=== PATIENT | male | born 1955 | race Caucasian/White ===

== ENCOUNTER 2023-08-13 11:09 | Emergency (ER) | payer OTHER, MEDICARE ==
--- NOTE | 2023-08-13 12:02 | ED ---
Recheck HPI - General Source: patient, RN notes reviewed Mode of arrival: ambulatory Limitations: no limitations - History of Present Illness MD Complaint: abnormal lab <Marie Silva - Last Filed: 08/13/23 17:04> <Jesus To - Last Filed: 08/13/23 22:08> - General Chief Complaint: Recheck/Abnormal Lab/Rx Stated Complaint: Low platelet count Time Seen by Provider: 08/13/23 11:27 - History of Present Illness Initial Comments: This is a 68-year-old male who presents to the emergency department for low platelet counts. Patient has a history of acute myeloid leukemia. Currently follows with Dr. Gutierrez. He had outpatient lab work done yesterday, demonstrating platelets of 5000. States that he typically receives platelet transfusions, however the facility he had his blood work done at yesterday was unable to do that. He was subsequently advised to come to the emergency department here for a platelet transfusion. He notes that he receives Benadryl and Tylenol prior to infusions due to a hx of reactions and also has them infused over 1 hour instead of 30 minutes to prevent any cardiac issues. (Marie Silva) - Related Data Home Medications Medication Instructions Recorded Confirmed Acyclovir [Zovirax] 400 mg PO BID 08/13/23 08/13/23 Cholecalciferol [Vitamin D3 (25 50 mcg PO DAILY 08/13/23 08/13/23 Mcg = 1000 Iu)] Cyanocobalamin (Vitamin B-12) 1,000 mcg PO DAILY 08/13/23 08/13/23 [Vitamin B-12] Furosemide [Lasix] 40 mg PO DAILY PRN 08/13/23 08/13/23 Levofloxacin [Levaquin] 500 mg PO DAILY 08/13/23 08/13/23 Levothyroxine Sodium [Synthroid] 50 mcg PO MOTUWETHFRSA 08/13/23 08/13/23 Levothyroxine Sodium [Synthroid] 100 mcg PO SENIOR 08/13/23 08/13/23 Posaconazole [Noxafil] 300 mg PO HS 08/13/23 08/13/23 Rosuvastatin Calcium 5 mg PO HS 08/13/23 08/13/23 Sennosides [Senokot] 8.6 mg PO BID PRN 08/13/23 08/13/23 Ubidecarenone [Coenzyme Q10] 200 mg PO DAILY 08/13/23 08/13/23 Venetoclax [Venclexta] 100 mg PO DIRECTED 08/13/23 08/13/23 Allergies Allergy/AdvReac Type Severity Reaction Status Date / Time prednisone Allergy Hallucinati Verified 08/13/23 12:46 ons adhesive tape AdvReac Swelling Verified 08/13/23 12:46 Review of Systems ROS Other: All systems not noted in ROS Statement are negative. <Marie Silva - Last Filed: 08/13/23 17:04> ROS Other: All systems not noted in ROS Statement are negative. <Jesus To - Last Filed: 08/13/23 22:08> ROS Statement: Those systems with pertinent positive or pertinent negative responses have been documented in the HPI. Past Medical History Past Medical History: No Reported History Additional Past Medical History / Comment(s): Leukemia History of Any Multi-Drug Resistant Organisms: None Reported Past Surgical History: Appendectomy, Orthopedic Surgery Additional Past Surgical History / Comment(s): Right hip surgery with ORIF, back surgery, right femur fracture Past Anesthesia/Blood Transfusion Reactions: No Reported Reaction Past Psychological History: No Psychological Hx Reported Smoking Status: Never smoker Past Alcohol Use History: None Reported Past Drug Use History: None Reported - Past Family History Father Family Medical History: Diabetes Mellitus Sister(s) Family Medical History: Diabetes Mellitus <Marie Silva - Last Filed: 08/13/23 17:04> General Exam Limitations: no limitations General appearance: alert, in no apparent distress Head exam: Present: atraumatic, normocephalic, normal inspection Respiratory exam: Present: normal lung sounds bilaterally. Absent: respiratory distress, wheezes, rales, rhonchi, stridor Cardiovascular Exam: Present: regular rate, normal rhythm, normal heart sounds. Absent: systolic murmur, diastolic murmur, rubs, gallop, clicks Neurological exam: Present: alert, oriented X3, CN II-XII intact Psychiatric exam: Present: normal affect, normal mood Skin exam: Present: warm, dry, intact, normal color. Absent: rash <Marie Silva - Last Filed: 08/13/23 17:04> Course Vital Signs 08/13/23 08/13/23 08/13/23 11:13 16:45 19:37 Temperature 97.9 F 97.1 F L Pulse Rate 63 65 62 Respiratory 20 12 16 Rate Blood Pressure 184/70 173/66 191/82 O2 Sat by Pulse 99 97 95 Oximetry 08/13/23 08/13/23 08/13/23 19:45 20:00 20:15 Temperature 97.1 F L 97.1 F L 97.1 F L Pulse Rate 59 L 61 57 L Respiratory 21 21 21 Rate Blood Pressure 191/82 186/79 183/81 O2 Sat by Pulse 92 L 94 L 93 L Oximetry 08/13/23 21:15 Temperature 97.1 F L Pulse Rate 64 Respiratory 20 Rate Blood Pressure 176/82 O2 Sat by Pulse Oximetry Medical Decision Making - Lab Data Result diagrams: 08/13/23 12:37 08/13/23 12:37 <Marie Silva - Last Filed: 08/13/23 17:04> - Lab Data Result diagrams: 08/13/23 12:37 08/13/23 12:37 <Jesus To - Last Filed: 08/13/23 22:08> - Medical Decision Making This is a 68 year old male who presents to the emergency department for a platelet transfusion. Was pt. sent in by a medical professional or institution? @ -No Did you speak to anyone other than the patient for history? @ -No Did you review nursing and triage notes? @ -Yes, and I agree, it is accurate with regards to the patient's symptoms. Were old charts reviewed? @ -No Differential Diagnosis? @ -Not applicable EKG interpreted by me (3pts min.)? @ -Not obtained X-rays interpreted by me (1pt min.)? @ -Not obtained CT interpreted by me (1pt min.)? @ -Not obtained U/S interpreted by me (1pt. min.)? @ -Not obtained What testing was considered but not performed? (CT, X-rays, U/S, labs)? Why? @ -None What meds were considered but not given? Why? @ -None Did you discuss the management of the patient with other professionals? @ -Yes, Dr. Gutierrez, hem/onc, who advised a transfusion with 1 unit of irradiated platelets. Did you reconcile home meds? @ -No Was smoking cessation discussed for >3mins.? @ -No Was critical care preformed (if so, how long)? @ -No Were there social determinants of health that impacted care today? How? (Homelessness, low income, unemployed, alcoholism, drug addiction, transportation, low edu. Level, literacy, decrease access to med. care, [facility], rehab)? @ -No Was there de-escalation of care discussed even if they declined? (Discuss DNR or withdrawal of care, Hospice)? @ -No What co-morbidities impacted this encounter? (DM, HTN, Smoking, COPD, CAD, Cancer, CVA, Hep., AIDS, mental health diagnosis, sleep apnea, morbid obesity)? @ -AML Was patient admitted / discharged? @ -Lab work demonstrates leukopenia with a white blood cell count of 1.2 and neutrophils of 0.10. Platelets are 4. Case discussed with Dr. Gutierrez, heme/onc. He advised transfusing the patient with 1 unit of irradiated platelets and he can be discharged home afterwards. Type and screen was ordered and blood bank advised that they do not have platelets available for transfusion in house, and they will need to be delivered from [place]. The blood bank proceeded with the ordering process and patient was made aware. Patient advised that he needs Tylenol and Benadryl to be given just prior to the infusion to prevent reactions and also requests they be transfused over an hour instead of 30 minutes to prevent any cardiac issues. Case signed out to Jeremy To PA-C, at shift completion pending platelet transfusion. Undiagnosed new problem with uncertain prognosis? @ -None Drug Therapy requiring intensive monitoring for toxicity (Heparin, Nitro, Insulin, Cardizem)? @ -None Were any procedures done? @ -None (Marie Silva) 68-year-old male with a past medical history significant for AML with lab work done yesterday showing platelets of 5000 typically receiving platelet transfusions secondary to his history advised to present today for platelet transfusion. Patient at this time has no current infectious symptoms. He is currently on chemotherapy. He finished 1 round this past Thursday and will be going to [facility] for more chemotherapy next week. Case was discussed with Dr. Gutierrez of heme-onc who advised transfusing 1 unit of irradiated platelets and discharged home. Patient was provided 1 unit of irradiated platelets here with no adverse events. Patient discharged home in stable condition. (Jesus To) - Lab Data Lab Results 08/13/23 08/13/23 08/13/23 Range/Units 12:37 12:37 12:37 WBC 1.2 L* (3.8-10.6) k/uL RBC 3.18 L (4.30-5.90) m/uL Hgb 9.4 L (13.0-17.5) gm/dL Hct 28.4 L (39.0-53.0) % MCV 89.2 (80.0-100.0) fL MCH 29.7 (25.0-35.0) pg MCHC 33.2 (31.0-37.0) g/dL RDW 14.5 (11.5-15.5) % Plt Count 4 L* (150-450) k/uL MPV 8.7 Neutrophils % (Manual) 13 % Band Neuts % (Manual) 1 % Lymphocytes % (Manual) 61 % Monocytes % (Manual) 25 % Neutrophils # (Manual) 0.10 L* (1.3-7.7) k/uL Lymphocytes # (Manual) 0.73 L (1.0-4.8) k/uL Monocytes # (Manual) 0.30 (0-1.0) k/uL Nucleated RBCs 0 (0-0) /100 WBC Manual Slide Review Performed PT 11.9 (10.0-12.5) sec INR 1.1 (<1.2) APTT 26.6 (22.0-30.0) sec Sodium 136 L (137-145) mmol/L Potassium 4.2 (3.5-5.1) mmol/L Chloride 110 H (98-107) mmol/L Carbon Dioxide 24 (22-30) mmol/L Anion Gap 2 mmol/L BUN 15 (9-20) mg/dL Creatinine 0.49 L (0.66-1.25) mg/dL Est GFR (CKD-EPI)AfAm >90 (>60 ml/min/1.73 sqM) Est GFR (CKD-EPI)NonAf >90 (>60 ml/min/1.73 sqM) Glucose 111 H (74-99) mg/dL Calcium 8.4 (8.4-10.2) mg/dL Total Bilirubin 1.2 (0.2-1.3) mg/dL AST 22 (17-59) U/L ALT 55 H (4-49) U/L Alkaline Phosphatase 59 (38-126) U/L Total Protein 5.7 L (6.3-8.2) g/dL Albumin 3.2 L (3.5-5.0) g/dL Blood Type Blood Type Confirm Blood Type Recheck Bld Type Recheck Status Antibody Screen Transfuse Platelets Spec Expiration Date 08/13/23 08/13/23 Range/Units 14:30 14:54 WBC (3.8-10.6) k/uL RBC (4.30-5.90) m/uL Hgb (13.0-17.5) gm/dL Hct (39.0-53.0) % MCV (80.0-100.0) fL MCH (25.0-35.0) pg MCHC (31.0-37.0) g/dL RDW (11.5-15.5) % Plt Count (150-450) k/uL MPV Neutrophils % (Manual) % Band Neuts % (Manual) % Lymphocytes % (Manual) % Monocytes % (Manual) % Neutrophils # (Manual) (1.3-7.7) k/uL Lymphocytes # (Manual) (1.0-4.8) k/uL Monocytes # (Manual) (0-1.0) k/uL Nucleated RBCs (0-0) /100 WBC Manual Slide Review PT (10.0-12.5) sec INR (<1.2) APTT (22.0-30.0) sec Sodium (137-145) mmol/L Potassium (3.5-5.1) mmol/L Chloride (98-107) mmol/L Carbon Dioxide (22-30) mmol/L Anion Gap mmol/L BUN (9-20) mg/dL Creatinine (0.66-1.25) mg/dL Est GFR (CKD-EPI)AfAm (>60 ml/min/1.73 sqM) Est GFR (CKD-EPI)NonAf (>60 ml/min/1.73 sqM) Glucose (74-99) mg/dL Calcium (8.4-10.2) mg/dL Total Bilirubin (0.2-1.3) mg/dL AST (17-59) U/L ALT (4-49) U/L Alkaline Phosphatase (38-126) U/L Total Protein (6.3-8.2) g/dL Albumin (3.5-5.0) g/dL Blood Type A Positive Blood Type Confirm A Positive Blood Type Recheck No Previous Record Bld Type Recheck Status CABO Indicated Antibody Screen NEGATIVE Transfuse Platelets 08/13/23 Spec Expiration Date 08/16/20232329 Disposition <Marie Silva - Last Filed: 08/13/23 17:04> Is patient prescribed a controlled substance at d/c from ED?: No Time of Disposition: 22:08 <Jesus To - Last Filed: 08/13/23 22:08> Clinical Impression: Thrombocytopenia, AML (acute myeloid leukemia) Disposition: HOME SELF-CARE Condition: Good Additional Instructions: Please return to the Emergency Department if symptoms worsen or any other concerns. Please follow-up with your oncologist. Referrals: None,Stated [Primary Care Provider] - 1-2 days
[2023-08-13 12:56] LABS: HCT 28.4 % (39.0-53.0); HGB 9.4 gm/dL (13.0-17.5); MCH 29.7 pg (25.0-35.0); MCHC 33.2 g/dL (31.0-37.0); MCV 89.2 fL (80.0-100.0); Mean Platelet Volume 8.7; RBC 3.18 m/uL (4.30-5.90); RDW 14.5 % (11.5-15.5)
[2023-08-13 13:05] LABS: INR 1.1 (<1.2); Partial Thromboplastin Time 26.6 sec (22.0-30.0); Prothrombin Time 11.9 sec (10.0-12.5)
[2023-08-13 13:08] LABS: WBC 1.2 k/uL (3.8-10.6)
[2023-08-13 13:17] LABS: Platelet Count 4 k/uL (150-450)
[2023-08-13 13:26] LABS: Neutrophils % (M) 13 %
[2023-08-13 13:27] LABS: Band Neutrophils % 1 %; Lymphocytes # (M) 0.73 k/uL (1.0-4.8)
[2023-08-13 13:29] LABS: ALT 55 U/L (4-49); AST 22 U/L (17-59); African American GFR (CKD) >90 (>60 ml/min/1.73 sqM); Albumin 3.2 g/dL (3.5-5.0); Alkaline Phosphatase 59 U/L (38-126); Anion Gap 2 mmol/L; Blood Urea Nitrogen 15 mg/dL (9-20); Calcium 8.4 mg/dL (8.4-10.2); Carbon Dioxide 24 mmol/L (22-30); Chloride 110 mmol/L (98-107); Glucose 111 mg/dL (74-99); Non-African American GFR(CKD) >90 (>60 ml/min/1.73 sqM); Nucleated Red Blood Cells 0 /100 WBC (0-0); Potassium 4.2 mmol/L (3.5-5.1); Sodium 136 mmol/L (137-145); Total Bilirubin 1.2 mg/dL (0.2-1.3); Total Cells Counted 100; Total Protein 5.7 g/dL (6.3-8.2)
[2023-08-13] MEDS: diphenhydrAMINE 50 MG/ML 1 ML VIAL IVP STA (19:11)
[2023-08-13] MEDS: ACETAMINOPHEN TAB 325 MG TAB PO STA (19:11)
[2023-08-13 19:54] VITALS: TEMP 97.1
[2023-08-13 22:56] VITALS: BP 173/74; PULSE 50; RESP 12
== END 2023-08-13 22:52 | disposition home or self-care (01) ==
LOC: EC 11:09
DX: D69.6 Thrombocytopenia, unspecified (principal); C92.00 Acute myeloblastic leukemia, not having achieved remission; Z88.8 Allergy status to other drugs, medicaments and biological substances
CPT/HCPCS: 99283; 96374; 36415; 86900; 86901; 80053; 85025; 85610; 85730; 86850; 36430; P9073; J1200

== ENCOUNTER 2023-08-28 15:41 | Observation (INO) | payer MEDICARE ==
[2023-08-28 16:25] VITALS: RESP 18
[2023-08-28 16:26] LABS: HCT 23.9 % (39.0-53.0); HGB 8.1 gm/dL (13.0-17.5); MCH 29.9 pg (25.0-35.0); MCHC 33.8 g/dL (31.0-37.0); MCV 88.4 fL (80.0-100.0); Mean Platelet Volume 8.7; RBC 2.71 m/uL (4.30-5.90); RDW 13.8 % (11.5-15.5)
[2023-08-28 16:41] LABS: WBC 0.7 k/uL (3.8-10.6)
[2023-08-28 17:00] LABS: ALT 32 U/L (4-49); AST 22 U/L (17-59); African American GFR (CKD) >90 (>60 ml/min/1.73 sqM); Albumin 3.2 g/dL (3.5-5.0); Alkaline Phosphatase 60 U/L (38-126); Anion Gap 6 mmol/L; Blood Urea Nitrogen 16 mg/dL (9-20); Calcium 8.3 mg/dL (8.4-10.2); Carbon Dioxide 25 mmol/L (22-30); Chloride 108 mmol/L (98-107); Glucose 119 mg/dL (74-99); Non-African American GFR(CKD) >90 (>60 ml/min/1.73 sqM); Platelet Count 5 k/uL (150-450); Potassium 4.1 mmol/L (3.5-5.1); Sodium 139 mmol/L (137-145); Total Bilirubin 1.8 mg/dL (0.2-1.3); Total Protein 5.9 g/dL (6.3-8.2)
[2023-08-28] MEDS: ACETAMINOPHEN TAB 325 MG TAB PO STA (20:05)
[2023-08-28] MEDS: diphenhydrAMINE 50 MG CAP PO STA (20:05)
[2023-08-28] MEDS: FUROSEMIDE 10 MG/ML 2 ML VIAL IV STA (22:17)
[2023-08-28] MEDS ORDERED: NALOXONE 0.4 MG/ML 1 ML VIAL IV PRN (22:35)
--- NOTE | 2023-08-28 23:13 | ED ---
Recheck HPI - General Chief Complaint: Recheck/Abnormal Lab/Rx Stated Complaint: Blood Transfusion Source: patient Mode of arrival: ambulatory Limitations: no limitations - History of Present Illness Initial Comments: This patient is a 68-year-old man with history of leukemia who presents with complaint that he has low platelet count. The patient states that he has been following Dr. Ventura, who had wanted him to have platelet transfusion. The patient states that there was not room in the outpatient center and that they did not want him going all weekend without receiving transfusion. He does arrive with a prescription to have transfusion. The patient denies symptoms of infection, no fever, chills, cough, chest pain, dyspnea, dysuria, vomiting or diarrhea. He has not had any active bleeding or bruising MD Complaint: abnormal lab -: days(s) Returns Today for: Called Because of Abnormal Lab/Test Symptoms Since Prior Visit: no new symptoms Associated Symptoms: none - Related Data Home Medications Medication Instructions Recorded Confirmed Acyclovir [Zovirax] 400 mg PO BID 08/13/23 08/25/23 Cholecalciferol [Vitamin D3 (25 50 mcg PO DAILY 08/13/23 08/25/23 Mcg = 1000 Iu)] Cyanocobalamin (Vitamin B-12) 1,000 mcg PO DAILY 08/13/23 08/25/23 [Vitamin B-12] Furosemide [Lasix] 40 mg PO DAILY PRN 08/13/23 08/25/23 Levofloxacin [Levaquin] 500 mg PO DAILY 08/13/23 08/25/23 Levothyroxine Sodium [Synthroid] 50 mcg PO MOTUWETHFRSA 08/13/23 08/25/23 Levothyroxine Sodium [Synthroid] 100 mcg PO SENIOR 08/13/23 08/25/23 Posaconazole [Noxafil] 300 mg PO HS 08/13/23 08/25/23 Rosuvastatin Calcium 5 mg PO HS 08/13/23 08/25/23 Sennosides [Senokot] 8.6 mg PO BID PRN 08/13/23 08/25/23 Ubidecarenone [Coenzyme Q10] 200 mg PO DAILY 08/13/23 08/25/23 Venetoclax [Venclexta] 100 mg PO DIRECTED 08/13/23 08/25/23 Allergies Allergy/AdvReac Type Severity Reaction Status Date / Time prednisone Allergy Hallucinati Verified 08/28/23 15:48 ons adhesive tape AdvReac Swelling Verified 08/28/23 15:48 Review of Systems ROS Statement: Those systems with pertinent positive or pertinent negative responses have been documented in the HPI. ROS Other: All systems not noted in ROS Statement are negative. Constitutional: Denies: fever, chills, weakness ENT: Denies: throat pain, congestion Respiratory: Denies: cough, dyspnea Cardiovascular: Reports: edema. Denies: chest pain, palpitations, syncope Gastrointestinal: Denies: abdominal pain, vomiting, diarrhea Musculoskeletal: Denies: back pain Skin: Denies: rash Neurological: Denies: headache Hematological/Lymphatic: Denies: easy bleeding, easy bruising Past Medical History Past Medical History: No Reported History Additional Past Medical History / Comment(s): Leukemia History of Any Multi-Drug Resistant Organisms: None Reported Past Surgical History: Appendectomy, Orthopedic Surgery Additional Past Surgical History / Comment(s): Right hip surgery with ORIF, back surgery, right femur fracture Past Anesthesia/Blood Transfusion Reactions: No Reported Reaction Past Psychological History: No Psychological Hx Reported Smoking Status: Never smoker - Past Family History Father Family Medical History: Diabetes Mellitus Sister(s) Family Medical History: Diabetes Mellitus General Exam Limitations: no limitations General appearance: alert, in no apparent distress Head exam: Present: atraumatic, normocephalic Eye exam: Present: normal appearance. Absent: scleral icterus, conjunctival injection ENT exam: Present: normal oropharynx Neck exam: Present: normal inspection Respiratory exam: Present: normal lung sounds bilaterally. Absent: respiratory distress, wheezes, rales, rhonchi, stridor Cardiovascular Exam: Present: regular rate, normal rhythm, normal heart sounds. Absent: systolic murmur, diastolic murmur, rubs, gallop GI/Abdominal exam: Present: soft. Absent: distended, tenderness, guarding, rebound, rigid, mass Extremities exam: Present: normal inspection, normal capillary refill. Absent: pedal edema, calf tenderness Neurological exam: Present: alert Skin exam: Present: warm, dry, intact, pallor. Absent: rash Course Vital Signs 08/28/23 08/28/23 08/28/23 15:46 20:12 20:22 Temperature 98 F 97.6 F Pulse Rate 64 62 57 L Respiratory 18 18 18 Rate Blood Pressure 170/48 171/65 170/72 O2 Sat by Pulse 96 98 98 Oximetry 08/28/23 08/28/23 20:42 21:50 Temperature 97.7 F 97.8 F Pulse Rate 58 L 58 L Respiratory 18 18 Rate Blood Pressure 179/79 178/77 O2 Sat by Pulse 99 98 Oximetry Medical Decision Making - Medical Decision Making Patient is 68-year-old man with acute leukemia and thrombocytopenia. He was sent here to have transfusion. I was informed by blood bank that receiving the second unit of platelets may require some delay as blood bank only has 1 unit. Therefore patient will be admitted to have the second unit transfused. Stable at time of admission. - Lab Data Result diagrams: 08/28/23 16:12 08/28/23 16:12 Lab Results 08/28/23 08/28/23 08/28/23 Range/Units 16:12 16:12 16:12 WBC 0.7 L* (3.8-10.6) k/uL RBC 2.71 L (4.30-5.90) m/uL Hgb 8.1 L (13.0-17.5) gm/dL Hct 23.9 L (39.0-53.0) % MCV 88.4 (80.0-100.0) fL MCH 29.9 (25.0-35.0) pg MCHC 33.8 (31.0-37.0) g/dL RDW 13.8 (11.5-15.5) % Plt Count 5 L* (150-450) k/uL MPV 8.7 Neutrophils # [employer]IST Differential Comment P Manual Slide Review Perf Sodium 139 (137-145) mmol/L Potassium 4.1 (3.5-5.1) mmol/L Chloride 108 H (98-107) mmol/L Carbon Dioxide 25 (22-30) mmol/L Anion Gap 6 mmol/L BUN 16 (9-20) mg/dL Creatinine 0.60 L (0.66-1.25) mg/dL Est GFR (CKD-EPI)AfAm >90 (>60 ml/min/1.73 sqM) Est GFR (CKD-EPI)NonAf >90 (>60 ml/min/1.73 sqM) Glucose 119 H (74-99) mg/dL Calcium 8.3 L (8.4-10.2) mg/dL Total Bilirubin 1.8 H (0.2-1.3) mg/dL AST 22 (17-59) U/L ALT 32 (4-49) U/L Alkaline Phosphatase 60 (38-126) U/L Total Protein 5.9 L (6.3-8.2) g/dL Albumin 3.2 L (3.5-5.0) g/dL Blood Type A Positive Blood Type Recheck A Pos Bld Type Recheck Status No Antibody Screen NEGATIVE Transfuse Platelets Spec Expiration Date 08/31/2023 - 231108/28/23 Range/Units 16:39 WBC (3.8-10.6) k/uL RBC (4.30-5.90) m/uL Hgb (13.0-17.5) gm/dL Hct (39.0-53.0) % MCV (80.0-100.0) fL MCH (25.0-35.0) pg MCHC (31.0-37.0) g/dL RDW (11.5-15.5) % Plt Count (150-450) k/uL MPV Neutrophils # Differential Comment Manual Slide Review Sodium (137-145) mmol/L Potassium (3.5-5.1) mmol/L Chloride (98-107) mmol/L Carbon Dioxide (22-30) mmol/L Anion Gap mmol/L BUN (9-20) mg/dL Creatinine (0.66-1.25) mg/dL Est GFR (CKD-EPI)AfAm (>60 ml/min/1.73 sqM) Est GFR (CKD-EPI)NonAf (>60 ml/min/1.73 sqM) Glucose (74-99) mg/dL Calcium (8.4-10.2) mg/dL Total Bilirubin (0.2-1.3) mg/dL AST (17-59) U/L ALT (4-49) U/L Alkaline Phosphatase (38-126) U/L Total Protein (6.3-8.2) g/dL Albumin (3.5-5.0) g/dL Blood Type Blood Type Recheck Bld Type Recheck Status Antibody Screen Transfuse Platelets 08/28/23 Spec Expiration Date Disposition Clinical Impression: Thrombocytopenia, AML (acute myeloid leukemia) Disposition: ADMITTED IP TO THIS HOSP Condition: Fair Is patient prescribed a controlled substance at d/c from ED?: No
[2023-08-29] MEDS: FUROSEMIDE 10 MG/ML 2 ML VIAL IV ONE (01:19)
[2023-08-29] MEDS: SODIUM CHLORIDE 0.9% 1,000 ML IV SCH (01:20)
[2023-08-29] MEDS ORDERED: SENNOSIDES 8.6 MG TAB PO PRN (07:37)
[2023-08-29] MEDS ORDERED: FUROSEMIDE 40 MG TAB PO PRN (07:37)
[2023-08-29] MEDS: LEVOTHYROXINE 50 MCG TAB PO SCH (08:17)
[2023-08-29] MEDS: VENETOCLAX 100 MG PO SCH (08:20)
[2023-08-29 08:39] LABS: HCT 22.4 % (39.0-53.0); HGB 7.9 gm/dL (13.0-17.5); MCHC 35.3 g/dL (31.0-37.0); Mean Platelet Volume 9.4; RBC 2.64 m/uL (4.30-5.90); RDW 13.8 % (11.5-15.5)
[2023-08-29 08:45] LABS: Platelet Count 18 k/uL (150-450); WBC 0.5 k/uL (3.8-10.6)
[2023-08-29] MEDS ORDERED: NON FORMULARY DRUG (Ubidecarenone [Coenzyme Q10] 200 MG Capsule) PO SCH (09:00)
[2023-08-29] MEDS: CHOLECALCIFEROL 25 MCG (1000 IU) TABLET PO SCH (09:55)
[2023-08-29] MEDS: ACYCLOVIR 200 MG CAP PO SCH (09:55)
[2023-08-29] MEDS: LEVOFLOXACIN 500 MG TAB PO SCH (09:55)
[2023-08-29] MEDS: CYANOCOBALAMIN 500 MCG TAB PO SCH (09:55)
[2023-08-29] MEDS: METOPROLOL TARTRATE 25 MG TAB PO STA (10:56)
[2023-08-29 11:09] VITALS: BP 179/83; PULSE 86
[2023-08-29 11:48] VITALS: TEMP 98
[2023-08-29] MEDS ORDERED: ATORVASTATIN 10 MG TAB PO SCH (21:00)
[2023-08-29] MEDS ORDERED: POSACONAZOLE 100 MG PO SCH (21:00)
--- NOTE | 2023-08-29 23:48 | HP ---
HISTORY AND PHYSICAL CHIEF COMPLAINT: Anemia. HISTORY OF PRESENT ILLNESS: This is a 68-year-old man, who apparently has been treated for leukemia and presented to the emergency room with bone marrow suppression. It is not clear how we got to the emergency room. He may have been sent by Oncology. REVIEW OF SYSTEMS: Unremarkable, obtained in the emergency room. PAST MEDICAL HISTORY: Unremarkable, obtained in the emergency room. FAMILY HISTORY: Unremarkable, obtained in the emergency room. PERSONAL AND SOCIAL HISTORY: Unremarkable, obtained in the emergency room. PHYSICAL EXAMINATION: VITAL SIGNS: Normal. GENERAL: Exam in the emergency room revealed that he was pale. CHEST: Clear. CARDIAC: Normal. ABDOMEN: Soft. EXTREMITIES: Normal. IMPRESSION: 1. Iatrogenic pancytopenia. 2. Leukemia. PLAN: 1. Bed rest. 2. IV fluids. 3. Reverse precautions. 4. Consult with Oncology. DONAL / PATRICK: [id number] /
--- NOTE | 2023-08-30 03:33 | DS ---
DISCHARGE SUMMARY CHIEF COMPLAINT: Pallor and weakness with a history of leukemia. HISTORY OF PRESENT ILLNESS AND PHYSICAL EXAMINATION: Details of this man's history and physical can be found in the initial workup. LABORATORY STUDIES: While he is in the hospital, he had laboratory studies, details of which can be found in the laboratory section of his chart. COURSE IN THE HOSPITAL: After admission, he was placed on bedrest, started on intravenous fluids and referred to Oncology. They apparently made an assessment that he did not need to stay in the hospital and could be discharged. He will be sent home and followed up with them and I will try to contact the patient for primary care followup. FINAL DIAGNOSES: 1. Pancytopenia, iatrogenic. 2. Leukemia. OPERATIONS: None. CONSULTATIONS: Hematology, is improved. DONAL / PATRICK: [id number] /
[2023-08-30] MEDS ORDERED: LEVOTHYROXINE 100 MCG TAB PO SCH (06:30)
== END 2023-08-29 11:25 | disposition home or self-care (01) ==
LOC: EC 15:41 → 5NMEDONC 22:35
PROVIDERS: ADMIT Family Medicine; ATTEND Family Medicine
DX: D61.818 Other pancytopenia (principal); C92.00 Acute myeloblastic leukemia, not having achieved remission; Z79.890 Hormone replacement therapy; Z83.3 Family history of diabetes mellitus; Z79.899 Other long term (current) drug therapy
CPT/HCPCS: 96376; 96374; 99285; 36415; 86900; 86901; 80053; 85025 ×2; 86850; G0378 ×2; P9073; J1940 ×2

== ENCOUNTER → 2024-04-11 | Outpatient (CLI) | payer MEDICARE ==
[2024-04-11 16:47] LABS: Anisocytosis Slight; Basophils % (A) 0 %; Eosinophils % (A) 0 %; HCT 40.4 % (39.0-53.0); HGB 13.1 gm/dL (13.0-17.5); Lymphocytes # (A) 0.4 k/uL (1.0-4.8); Lymphocytes % (A) 3 %; MCH 34.3 pg (25.0-35.0); MCHC 32.3 g/dL (31.0-37.0); MCV 106.3 fL (80.0-100.0); Macrocytosis Marked; Monocytes # (A) 0.3 k/uL (0-1.0); Monocytes % (A) 2 %; Neutrophils # (A) 12.9 k/uL (1.3-7.7); Neutrophils % (A) 93 %; Platelet Count 165 k/uL (150-450); RBC 3.81 m/uL (4.30-5.90); RDW 17.8 % (11.5-15.5); WBC 13.9 k/uL (3.8-10.6)
[2024-04-11 17:00] LABS: ALT 216 U/L (4-49); AST 66 U/L (17-59); African American GFR (CKD) >90 (>60 ml/min/1.73 sqM); Albumin 3.9 g/dL (3.5-5.0); Albumin/Globulin Ratio 1.6; Alkaline Phosphatase 299 U/L (38-126); Anion Gap 6 mmol/L; Bilirubin,Unconjugated 0.5 mg/dL (0.0-1.1); Blood Urea Nitrogen 26 mg/dL (9-20); Calcium 8.8 mg/dL (8.4-10.2); Carbon Dioxide 27 mmol/L (22-30); Chloride 101 mmol/L (98-107); Globulin 2.4 g/dL; Glucose 185 mg/dL (74-99); Magnesium 2.2 mg/dL (1.6-2.3); Non-African American GFR(CKD) >90 (>60 ml/min/1.73 sqM); Phosphorus 4.9 mg/dL (2.5-4.5); Potassium 4.6 mmol/L (3.5-5.1); Sodium 134 mmol/L (137-145); Total Bilirubin 1.6 mg/dL (0.2-1.3); Total Protein 6.3 g/dL (6.3-8.2)
[2024-04-11 22:18] LABS: HSV I IgG Interp Positive (Negative); HSV II IgG Interp Negative (Negative)
== END | disposition home or self-care (01) ==
LOC: LABWHC1 14:45
DX: D89.813 Graft-versus-host disease, unspecified (principal); Z94.84 Stem cells transplant status; Z94.81 Bone marrow transplant status
CPT/HCPCS: 36415; 80048; 80076; 83625; 83735; 84100; 85025; 86695; 86696

== ENCOUNTER → 2024-05-09 | Outpatient (CLI) | payer MEDICARE ==
[2024-05-09 15:48] LABS: ALT 29 U/L (4-49); AST 19 U/L (17-59); African American GFR (CKD) >90 (>60 ml/min/1.73 sqM); Alkaline Phosphatase 69 U/L (38-126); Anion Gap 5 mmol/L; Bilirubin,Unconjugated 0.5 mg/dL (0.0-1.1); Blood Urea Nitrogen 27 mg/dL (9-20); Calcium 8.9 mg/dL (8.4-10.2); Carbon Dioxide 31 mmol/L (22-30); Chloride 97 mmol/L (98-107); Glucose 148 mg/dL (74-99); LDH 190 U/L (120-246); Magnesium 1.9 mg/dL (1.6-2.3); Non-African American GFR(CKD) 79 (>60 ml/min/1.73 sqM); Phosphorus 4.4 mg/dL (2.5-4.5); Potassium 4.7 mmol/L (3.5-5.1); Sodium 133 mmol/L (137-145); Total Bilirubin 0.6 mg/dL (0.2-1.3)
[2024-05-09 15:56] LABS: Anisocytosis Slight; Basophils % (A) 0 %; Eosinophils % (A) 0 %; HGB 13.9 gm/dL (13.0-17.5); Lymphocytes # (A) 0.5 k/uL (1.0-4.8); Lymphocytes % (A) 4 %; MCH 36.2 pg (25.0-35.0); MCV 106.4 fL (80.0-100.0); Macrocytosis Marked; Mean Platelet Volume 8.4; Monocytes # (A) 0.4 k/uL (0-1.0); Monocytes % (A) 3 %; Neutrophils # (A) 11.4 k/uL (1.3-7.7); Neutrophils % (A) 92 %; Platelet Count 147 k/uL (150-450); RBC 3.86 m/uL (4.30-5.90); RDW 16.5 % (11.5-15.5); WBC 12.5 k/uL (3.8-10.6)
== END | disposition home or self-care (01) ==
LOC: LABWHC1 15:11
DX: Z94.84 Stem cells transplant status (principal)
CPT/HCPCS: 36415; 80048; 80076; 83615; 83735; 84100; 85025

== ENCOUNTER 2024-07-08 15:14 | Inpatient (IN) | payer MEDICARE ==
--- NOTE | 2024-07-08 16:11 | ED ---
General Adult HPI - General Chief complaint: Syncope Stated complaint: syncope Time Seen by Provider: 07/08/24 15:30 Source: EMS Mode of arrival: EMS - History of Present Illness Initial comments: Dictation was produced using Omnik[employer] dictation software. please excuse any grammatical, word or spelling errors. Chief Complaint: 68-year-old male with history of bone marrow transplant presents to the emergency department after syncopal episode. History of Present Illness: States that he has been feeling pretty lightheaded over the last several days. He had another fall previously about a week and a half ago. Patient recently admitted to the [facility] for graft- versus-host episode. Today he was on the phone. He stood up tried to get ready when he fell. Landed on the ground not sure how long he was on the ground for. States that he did hit his head and hurt his back. He has chronic back pain states that his back pain does not seem to bother him currently. Contacted his nurse from his transplant doctor told him that he needs to come to the ER to be evaluated. Patient recently had his steroid medications increased. Does take immunosuppressive medications. The ROS documented in this emergency department record has been reviewed and confirmed by me. Those systems with pertinent positive or negative responses have been documented in the HPI. All other systems are other negative and/or noncontributory. - Related Data Home Medications Medication Instructions Recorded Confirmed Acyclovir [Zovirax] 400 mg PO BID 08/13/23 09/18/23 Cholecalciferol [Vitamin D3 (25 50 mcg PO DAILY 08/13/23 09/18/23 Mcg = 1000 Iu)] Cyanocobalamin (Vitamin B-12) 1,000 mcg PO DAILY 08/13/23 09/18/23 [Vitamin B-12] Furosemide [Lasix] 40 mg PO DAILY PRN 08/13/23 09/18/23 Levofloxacin [Levaquin] 500 mg PO DAILY 08/13/23 09/18/23 Levothyroxine Sodium [Synthroid] 50 mcg PO [id number]@59908/13/23 09/18/23 Levothyroxine Sodium [Synthroid] 100 mcg PO SENIOR@0600 08/13/23 09/18/23 Posaconazole [Noxafil] 300 mg PO HS 08/13/23 09/18/23 Rosuvastatin Calcium 5 mg PO HS 08/13/23 09/18/23 Ubidecarenone [Coenzyme Q10] 200 mg PO DAILY 08/13/23 09/18/23 Venetoclax [Venclexta] 100 mg PO DIRECTED@1830 08/13/23 09/18/23 Sennosides/Docusate Sodium [Senna 1 tab PO DAILY PRN 08/29/23 09/18/23 Plus 8.6-50 mg Tablet] Allergies Allergy/AdvReac Type Severity Reaction Status Date / Time prednisone Allergy Hallucinati Verified 07/08/24 15:26 ons adhesive tape AdvReac Swelling Verified 07/08/24 15:26 Review of Systems ROS Statement: Those systems with pertinent positive or pertinent negative responses have been documented in the HPI. ROS Other: All systems not noted in ROS Statement are negative. Past Medical History Past Medical History: No Reported History Additional Past Medical History / Comment(s): Leukemia History of Any Multi-Drug Resistant Organisms: None Reported Past Surgical History: Appendectomy, Orthopedic Surgery Additional Past Surgical History / Comment(s): Right hip surgery with ORIF, back surgery, right femur fracture Past Anesthesia/Blood Transfusion Reactions: No Reported Reaction Past Psychological History: No Psychological Hx Reported Smoking Status: Never smoker - Past Family History Father Family Medical History: Diabetes Mellitus Sister(s) Family Medical History: Diabetes Mellitus General Exam - General Exam Comments Initial Comments: PHYSICAL EXAM: General Impression: Alert and oriented x3, not in acute distress HEENT: Normocephalic atraumatic, extra-ocular movements intact, pupils equal and reactive to light bilaterally, mucous membranes moist. Cardiovascular: Heart regular rate and rhythm Chest: Able to complete full sentences, no retractions, no tachypnea Abdomen: abdomen soft, non-tender, non-distended, no organomegaly Musculoskeletal: Pulses present and equal in all extremities, no peripheral edema Motor: no focal deficits noted Neurological: CN II-XII grossly intact, no focal motor or sensory deficits noted Skin: Intact with no visualized rashes Psych: Normal affect and mood Course Vital Signs 07/08/24 07/08/24 07/08/24 15:21 15:42 17:25 Temperature 98.7 F Pulse Rate 74 61 Pulse Rate [ 65 Pulse Oximetery ] Respiratory 18 18 16 Rate Blood Pressure 195/105 184/92 Blood Pressure [Right Arm Sitting] Blood Pressure [Right Arm Standing] Blood Pressure 167/76 [Right Arm Supine] O2 Sat by Pulse 98 96 95 Oximetry 07/08/24 07/08/24 17:27 17:30 Temperature Pulse Rate Pulse Rate [ 59 L 66 Pulse Oximetery ] Respiratory 16 16 Rate Blood Pressure Blood Pressure 152/71 [Right Arm Sitting] Blood Pressure 166/81 [Right Arm Standing] Blood Pressure [Right Arm Supine] O2 Sat by Pulse 97 98 Oximetry EKG Findings - EKG Comments: EKG Findings:: My EKG interpretation: Ventricular rate 68, sinus rhythm, NV interval 188, left bundle branch block, QRS 160, QTc 433. Frequent PVCs. No NV prolongation, no QTC prolongation, no ST or T-wave changes noted. \Overall, this EKG is unremarkable Medical Decision Making - Medical Decision Making Was pt. sent in by a medical professional or institution (, [facility], PRINCIPAL ASSOCIATE, urgent care, hospital, or care home...) When possible be specific @ -No Did you speak to anyone other than the patient for history (EMS, parent, family, police, friend...)? What history was obtained from this source @ -No Did you review nursing and triage notes (agree or disagree)? Why? @ -I reviewed and agree with nursing and triage notes Were old charts reviewed (outside hosp., previous admission, EMS record, old EKG, old radiological studies, urgent care reports/EKG's, care home records)? Report findings @ -No old charts were reviewed Differential Diagnosis (chest pain, altered mental status, abdominal pain women, abdominal pain men, vaginal bleeding, musculoskeletal, weakness, fever, dyspnea, syncope, headache, dizziness, GI bleed, back pain, seizure, CVA, palpatations, mental health)? @ -Differential Syncope: Valvular disease, hypertrophic cardiomyopathy, pulmonary embolism, tamponade, tachycardia, bradycardia, NH, hypovolemia, hemorrhage, dissection, anemia, intracranial hemorrhage, seizure, hypoglycemia, carbon monoxide poisoning, this is not meant to be an all-inclusive list. EKG interpreted by me (3pts min.). @ -See above X-rays interpreted by me (1pt min.). @ -X-ray of the chest shows no acute processes CT interpreted by me (1pt min.). @ -Lumbar CT shows no acute processes. CT head and C-spine shows no acute processes U/S interpreted by me (1pt. min.). @ -None done What testing was considered but not performed or refused? (CT, X-rays, U/S, labs)? Why? @ -None What meds were considered but not given or refused? Why? @ -None Was smoking cessation discussed for >3mins.? @ -No Were there social determinants of health that impacted care today? How? (Homelessness, low income, unemployed, alcoholism, drug addiction, transportation, low edu. Level, literacy, decrease access to med. care, group home, rehab)? @ -No Was there de-escalation of care discussed even if they declined (Discuss DNR or withdrawal of care, Hospice)? DNR status @ -No What co-morbidities impacted this encounter? (DM, HTN, Smoking, COPD, CAD, Cancer, CVA, ARF, Chemo, Hep., AIDS, mental health diagnosis, sleep apnea, morbid obesity)? @ -Bone marrow transplant Was patient admitted / discharged? Hospital course, mention meds given and route, prescriptions, significant lab abnormalities, going to OR and other pertinent info. @ -68-year-old male presents emergency department with syncope and fall. Patient has been feeling weak at home. Patient denies any cardiac comorbidities. He describes history of bone marrow transplant takes transfer medications. Vital signs upon arrival are within acceptable limits. EKG shows frequent PVCs. Laboratory evaluation obtained. Mildly hyponatremic sodium 129. Rest of labs within acceptable limits. Imaging studies were obtained. Patient did fall and hit his head hurt his back. CT imaging is negative. Chest x-ray is nonacute. Patient having frequent PVCs will be admitted with cardiology consultation. Is concerned that patient is having cardiac driven syncope Did you discuss the management of the patient with other professionals (professionals i.e. , PA, PRINCIPAL ASSOCIATE, lab, RT, psych nurse, social work job titles, tack cleaner, teacher, parachute/combatant diver officer, case therapist)? Give summary @ -Case discussed with hospitalist for admission Was critical care preformed (if so, how long)? @ -No Undiagnosed new problem with uncertain prognosis? @ -No Drug Therapy requiring intensive monitoring for toxicity (Heparin, Nitro, Insulin, Cardizem)? @ -No Were any procedures done? @ -No Diagnosis/symptom? Acute, or Chronic, or Acute on Chronic? Uncomplicated (without systemic symptoms) or Complicated (systemic symptoms)? @ -Syncope Side effects of treatment? @ -No Exacerbation, Progression, or Severe Exacerbation? @ -No Poses a threat to life or bodily function? How? (Chest pain, USA, NH, pneumonia, PE, COPD, DKA, ARF, appy, cholecystitis, CVA, Diverticulitis, Homicidal, Suicidal, threat to staff... and all critical care pts) @ -yes - Lab Data Result diagrams: 07/08/24 16:10 07/08/24 16:10 Lab Results 07/08/24 07/08/24 07/08/24 Range/Units 16:10 16:10 16:10 WBC 9.8 (3.8-10.6) k/uL RBC 4.12 L (4.30-5.90) m/uL Hgb 15.3 (13.0-17.5) gm/dL Hct 45.5 (39.0-53.0) % MCV 110.3 H (80.0-100.0) fL MCH 37.0 H (25.0-35.0) pg MCHC 33.6 (31.0-37.0) g/dL RDW 14.1 (11.5-15.5) % Plt Count 203 (150-450) k/uL MPV 8.7 Neutrophils % 82 % Lymphocytes % 4 % Monocytes % 8 % Eosinophils % 4 % Basophils % 0 % Neutrophils # 8.0 H (1.3-7.7) k/uL Lymphocytes # 0.4 L (1.0-4.8) k/uL Monocytes # 0.8 (0-1.0) k/uL Eosinophils # 0.4 (0-0.7) k/uL Basophils # 0.0 (0-0.2) k/uL Manual Slide Review Performed Macrocytosis Marked A Sodium 129 L (137-145) mmol/L Potassium 4.4 (3.5-5.1) mmol/L Chloride 94 L (98-107) mmol/L Carbon Dioxide 27 (22-30) mmol/L Anion Gap 8 mmol/L BUN 19 (9-20) mg/dL Creatinine 0.54 L (0.66-1.25) mg/dL Est GFR (CKD-EPI)AfAm >90 (>60 ml/min/1.73 sqM) Est GFR (CKD-EPI)NonAf >90 (>60 ml/min/1.73 sqM) Glucose 92 (74-99) mg/dL Plasma Lactic Acid Jovanni 1.9 (0.7-2.0) mmol/L Calcium 8.9 (8.4-10.2) mg/dL Magnesium 1.9 (1.6-2.3) mg/dL Total Bilirubin 0.6 (0.2-1.3) mg/dL AST 20 (17-59) U/L ALT 12 (4-49) U/L Alkaline Phosphatase 67 (38-126) U/L Troponin I (0.000-0.034) ng/mL Total Protein 6.6 (6.3-8.2) g/dL Albumin 4.3 (3.5-5.0) g/dL 07/08/24 Range/Units 16:10 WBC (3.8-10.6) k/uL RBC (4.30-5.90) m/uL Hgb (13.0-17.5) gm/dL Hct (39.0-53.0) % MCV (80.0-100.0) fL MCH (25.0-35.0) pg MCHC (31.0-37.0) g/dL RDW (11.5-15.5) % Plt Count (150-450) k/uL MPV Neutrophils % % Lymphocytes % % Monocytes % % Eosinophils % % Basophils % % Neutrophils # (1.3-7.7) k/uL Lymphocytes # (1.0-4.8) k/uL Monocytes # (0-1.0) k/uL Eosinophils # (0-0.7) k/uL Basophils # (0-0.2) k/uL Manual Slide Review Macrocytosis Sodium (137-145) mmol/L Potassium (3.5-5.1) mmol/L Chloride (98-107) mmol/L Carbon Dioxide (22-30) mmol/L Anion Gap mmol/L BUN (9-20) mg/dL Creatinine (0.66-1.25) mg/dL Est GFR (CKD-EPI)AfAm (>60 ml/min/1.73 sqM) Est GFR (CKD-EPI)NonAf (>60 ml/min/1.73 sqM) Glucose (74-99) mg/dL Plasma Lactic Acid Jovanni (0.7-2.0) mmol/L Calcium (8.4-10.2) mg/dL Magnesium (1.6-2.3) mg/dL Total Bilirubin (0.2-1.3) mg/dL AST (17-59) U/L ALT (4-49) U/L Alkaline Phosphatase (38-126) U/L Troponin I <0.012 (0.000-0.034) ng/mL Total Protein (6.3-8.2) g/dL Albumin (3.5-5.0) g/dL Disposition Clinical Impression: Syncope Disposition: ADMITTED IP TO THIS HOSP Condition: Fair Referrals: Shawn Ron MD [Primary Care Provider] - 1-2 days Decision Time: 17:47
[2024-07-08 16:33] LABS: Basophils % (A) 0 %; Eosinophils # (A) 0.4 k/uL (0-0.7); Eosinophils % (A) 4 %; HCT 45.5 % (39.0-53.0); HGB 15.3 gm/dL (13.0-17.5); Lymphocytes # (A) 0.4 k/uL (1.0-4.8); Lymphocytes % (A) 4 %; MCHC 33.6 g/dL (31.0-37.0); MCV 110.3 fL (80.0-100.0); Macrocytosis Marked; Mean Platelet Volume 8.7; Monocytes # (A) 0.8 k/uL (0-1.0); Monocytes % (A) 8 %; Neutrophils % (A) 82 %; Platelet Count 203 k/uL (150-450); RBC 4.12 m/uL (4.30-5.90); RDW 14.1 % (11.5-15.5); WBC 9.8 k/uL (3.8-10.6)
[2024-07-08 16:41] LABS: ALT 12 U/L (4-49); AST 20 U/L (17-59); African American GFR (CKD) >90 (>60 ml/min/1.73 sqM); Albumin 4.3 g/dL (3.5-5.0); Alkaline Phosphatase 67 U/L (38-126); Anion Gap 8 mmol/L; Blood Urea Nitrogen 19 mg/dL (9-20); Calcium 8.9 mg/dL (8.4-10.2); Carbon Dioxide 27 mmol/L (22-30); Chloride 94 mmol/L (98-107); Glucose 92 mg/dL (74-99); Magnesium 1.9 mg/dL (1.6-2.3); Non-African American GFR(CKD) >90 (>60 ml/min/1.73 sqM); Potassium 4.4 mmol/L (3.5-5.1); Sodium 129 mmol/L (137-145); Total Bilirubin 0.6 mg/dL (0.2-1.3); Total Protein 6.6 g/dL (6.3-8.2)
--- NOTE | 2024-07-08 16:44 | XR ---
EXAMINATION TYPE: XR chest 2V DATE OF EXAM: 07/08/2024 4:39 PM COMPARISON: Multiple radiographs, with the most recent on 02/26/2016. TECHNIQUE: XR chest 2V Frontal and lateral views of the chest. CLINICAL INDICATION:Male, 68 years old with history of fall, syncope; FINDINGS: Lungs/Pleura: There is no evidence of pleural effusion, focal consolidation, or pneumothorax. Chroni c blunting of the right costophrenic angle. Pulmonary vascularity: Unremarkable. Heart/mediastinum: Cardiomediastinal silhouette is unremarkable. Musculoskeletal: No acute osseous pathology. IMPRESSION: No acute cardiopulmonary disease/process. [facility], , 07/08/2024 4:42 PM
--- NOTE | 2024-07-08 16:48 | CT ---
EXAMINATION TYPE: CT brain cspine wo con CT DLP: 1345.4 mGycm, Automated exposure control for dose reduction was used. DATE OF EXAM: 07/08/2024 4:40 PM COMPARISON: None.. CLINICAL INDICATION:Male, 68 years old with history of syncope, head contusion; Syncope, Head contusi on., pain TECHNIQUE: Brain: Multiple axial CT images of the brain were obtained without IV contrast. Cspine: Axial CT images from the skull base to the inferior aspect of T2 we obtained without intraven ous contrast. Coronal and sagittal reformatted images were also reviewed. FINDINGS: Brain: Extra-axial spaces: No abnormal extra-axial fluid collections. Ventricular system: Within normal limits Cerebral parenchyma: No acute intraparenchymal hemorrhage or mass effect. The mejia-white junction is well differentiated. Scattered hypoattenuating areas are seen within the periventricular white matte r. Cerebellum: Unremarkable. Mass effect: No evidence of midline shift. Intracranial vasculature: Atherosclerotic calcifications of the intracranial vessels. Soft tissues: Normal. Calvarium/osseous structures: No depressed skull fracture. Paranasal sinuses and mastoid air cells: Clear. Visualized orbits: Orbital contents are intact. Cervical spine: Fracture: None. Osseous structures: Multilevel degenerative disc disease changes with endplate spurring and disc oste ophyte complex's. Vertebral alignment: Probable degenerative grade 1 anterolisthesis of C3 on C4. Spinal canal/Neural Foramina: No evidence of significant spinal canal narrowing. Facet joint uncovert ebral joint arthropathy scattered throughout the cervical spine with varying degrees of neural forami nal stenosis. Neck soft tissues: Prevertebral soft tissues are within normal limits. Other: The airway is patent. Biapical pleural-parenchymal scarring. Bilateral carotid bulb calcificat ions. IMPRESSION: 1. No acute intracranial process. 2. Nonspecific white matter changes, likely secondary to chronic small vessel ischemic disease. 3. No evidence of cervical spine fracture. 4. Mild multilevel degenerative disc disease. Probable degenerative grade 1 anterolisthesis of C3 on C4. [facility], , 07/08/2024 4:46 PM
--- NOTE | 2024-07-08 16:57 | CT ---
EXAMINATION TYPE: CT lumbar spine wo con CT DLP: 886.3 mGycm, Automated exposure control for dose reduction was used. DATE OF EXAM: 07/08/2024 4:39 PM COMPARISON: Bilateral hip radiograph 06/24/2024. CLINICAL INDICATION:Male, 68 years old with history of fall; PHH, Fall, Low back pain., pain TECHNIQUE: Multiple axial images were obtained from the midportion of T11 through the sacroiliac rolo nts. Soft tissue and bone windows in coronal and sagittal planes were obtained and reviewed. Contrast used: none. Oral contrast used: none. FINDINGS: Alignment: There are 5 lumbar type vertebral bodies. Levoscoliotic curvature of the lumbar spine with apex at L2. Bone: No evidence of acute fracture is identified. Partial visualization of right hip arthroplasty. Vertebral augmentation changes involving the T2 and L3 vertebral bodies are prior compression deformi ties. There is extension of the cement into the one L2 and L2-L3 disc spaces. Discs: T12-L1: No spinal canal or neural foraminal stenosis is identified. L1-L2: Retropulsion of the posterior endplate of the L2 vertebral body approximately 4 mm. Results in mild central canal stenosis. No significant neural foraminal stenosis. L2-L3: Broad-based disc bulge with mild effacement of the anterior thecal sac. No significant neural foraminal stenosis. L3-L4: Broad-based disc bulge with moderate effacement of the anterior thecal sac. Bilateral facet ar thropathy. Mild left neural foraminal stenosis. The right neural foramen is patent. L4-L5: Broad-based disc bulge with mild to moderate effacement of the anterior thecal sac. Bilateral facet arthropathy. Mild bilateral neural foraminal stenosis. L5-S1: Broad-based disc bulge without significant effacement of the anterior thecal sac. Bilateral fa cet arthropathy. No significant neural foraminal stenosis. Other: None IMPRESSION: 1. No evidence for acute spinal fracture. Consider MRI if there is continued clinical concern. 2. Vertebral augmentation changes involving the L2 and L3 vertebral bodies from prior compression fra ctures. 3. Mild to moderate multilevel degenerative disc disease and facet arthropathy described above. [facility], , 07/08/2024 4:55 PM
[2024-07-08] MEDS ORDERED: NALOXONE 0.4 MG/ML 1 ML VIAL IV PRN (17:44)
[2024-07-08] MEDS: SODIUM CHLORIDE 0.9% 1,000 ML IV SCH (18:40)
[2024-07-08] MEDS ORDERED: ACYCLOVIR 400 MG PO SCH (21:00)
[2024-07-08] MEDS: cycloSPORINE 0.05% OPHTH 0.4 ML DROPERETTE BOTH EYES SCH (22:19)
[2024-07-08] MEDS: ursodioL 300 MG CAP PO SCH (22:19)
[2024-07-08] MEDS: carvediloL 3.125 MG TAB PO SCH (22:19)
[2024-07-09] MEDS: PANTOPRAZOLE 40 MG TABLET PO SCH (06:33)
[2024-07-09] MEDS: LEVOTHYROXINE 50 MCG TAB PO SCH (06:33)
[2024-07-09] MEDS: ACYCLOVIR 200 MG CAP PO SCH (08:46)
[2024-07-09] MEDS: predniSONE 5 MG TAB PO SCH (08:47)
[2024-07-09] MEDS: CALCIUM CARB-VIT D 500 MG-5 MCG TAB PO SCH (08:47)
[2024-07-09] MEDS: ASPIRIN 81 MG PO SCH (08:47)
--- NOTE | 2024-07-09 14:53 | P.CRDCN ---
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 He has previously followed with facilities assistant Dr. Myers, and more r ecently has seen facilities assistant at [facility] Dr. Jose Cabrales. He states that yesterday he got up from the recliner and was attempting to walk to the bed when he felt like he was going to pass out and then woke up on the floor. He denies any chest pain or pressure. No shortness of breath, palpitations. He does have episodes of intermittent dizziness and just not feeling right. EKG does show sinus rhythm with PVCs and left bundle branch block. He states he has followed with a facilities assistant at [facility] and believes he had an echo done in the past few months, reviewed [facility] portal with patient's and no echo report available. Labs reviewed: Sodium 129, potassium 4.4, creatinine 0.54, troponin negative, magnesium 1.9. Orthostatic vital signs were negative yesterday. REVIEW OF SYSTEMS: No fever or chills. No cough or expectoration. No diaphoresis. Patient denies headache, blurred vision, double vision. Patient denies any stomach discomfort. No nausea, vomiting. No hematochezia. No hematemesis. Denies any black stools or blood in his stools. Denies dysuria or hematuria. No muscle weakness or numbness. No chest pain or pressure. Reports dizziness and syncope. PHYSICAL EXAMINATION: This is a 68-year-old male in no apparent distress at the time of my examination. HEENT: Head is atraumatic, normocephalic. Pupils are equal, round. Sclerae anicteric. Conjunctivae are clear. Mucous membranes of the mouth are moist. Neck is supple. There is no jugular venous distention. No carotid bruit is heard. CHEST EXAMINATION: Lungs are clear to auscultation. No chest wall tenderness is noted on palpation or with deep breathing. HEART EXAMINATION: Heart regular rate and rhythm. S1, S2 heard. No murmurs, gallops or rub. ABDOMEN: Soft, nontender. Bowel sounds are heard. EXTREMITIES: 2+ peripheral pulses with no evidence of peripheral edema and no calf tenderness noted. NEUROLOGIC EXAMINATION: Patient is awake, alert and oriented x3. IMPRESSION AND PLAN: Leukemia History of bone marrow transplant Syncope Hyponatremia CAD status post PCI Left bundle branch block PVCs PLAN: Symptoms could be related to medications or may possibly be related to a cardiac arrhythmia. Will check echocardiogram to evaluate heart function and structure. Check carotid ultrasound. Check orthostatic vital signs again. Likely recommend outpatient event monitor at discharge. Will monitor overnight. I am dictating on behalf of Dr. Tushar Matamoros's history/physical and assessment/plan. Past Medical History Past Medical History: No Reported History Additional Past Medical History / Comment(s): Leukemia History of Any Multi-Drug Resistant Organisms: None Reported Past Surgical History: Appendectomy, Orthopedic Surgery Additional Past Surgical History / Comment(s): Right hip surgery with ORIF, back surgery, right femur fracture Past Anesthesia/Blood Transfusion Reactions: No Reported Reaction Past Psychological History: No Psychological Hx Reported Smoking Status: Never smoker Past Alcohol Use History: None Reported Past Drug Use History: None Reported - Past Family History Father Family Medical History: Diabetes Mellitus Sister(s) Family Medical History: Diabetes Mellitus Medications and Allergies Home Medications Medication Instructions Recorded Confirmed Type Acyclovir [Zovirax] 400 mg PO BID 08/13/23 07/08/24 History Levothyroxine Sodium [Synthroid] 50 mcg PO DAILY 08/13/23 07/08/24 History Aspirin EC [Ecotrin Low Dose] 81 mg PO DAILY 07/08/24 07/08/24 History Calcium Citrate/Vitamin D3 1 tab PO DAILY 07/08/24 07/08/24 History [Calcium Cit 315-Vit D3 6.25 Mcg (250 Iu)] Diclofenac Sodium Gel [Voltaren 1% 1 applic TOPICAL BID PRN 07/08/24 07/08/24 History Gel] Hydrocortisone Cream 1 applic TOPICAL BID 07/08/24 07/08/24 History [Hydrocortisone 1% Cream] Isavuconazonium Sulfate [Cresemba] 372 mg PO DAILY 07/08/24 07/08/24 History Letermovir [Prevymis] 480 mg PO DAILY 07/08/24 07/08/24 History Lidocaine 5% Patch [Lidoderm] 1 patch TOPICAL DAILY 07/08/24 07/08/24 History Omeprazole 20 mg PO AC-BID 07/08/24 07/08/24 History Triamcinolone 0.1% Cream [Kenalog 1 applicatio TOPICAL BID 07/08/24 07/08/24 History 0.1% Cream] carvediloL [Coreg] 3.125 mg PO BID 07/08/24 07/08/24 History cycloSPORINE 0.05% OPHTH SOLN 1 applicator BOTH EYES Q12H 07/08/24 07/08/24 History [Restasis] predniSONE 15 mg PO DAILY 07/08/24 07/08/24 History ursodioL [Ursodiol] 300 mg PO BID 07/08/24 07/08/24 History Allergies Allergy/AdvReac Type Severity Reaction Status Date / Time prednisone Allergy Hallucinati Verified 07/08/24 18:36 ons adhesive tape AdvReac Swelling Verified 07/08/24 18:36 Physical Exam Vitals: Vital Signs Temp Pulse Pulse Resp BP BP BP 07/09/24 07:00 97.7 F 52 L 14 07/09/24 02:00 97.4 F L 62 17 149/76 07/08/24 20:39 65 18 128/75 07/08/24 20:00 98.0 F 63 17 157/75 07/08/24 19:29 58 L 18 146/77 07/08/24 18:38 84 18 143/81 07/08/24 17:30 66 16 166/81 07/08/24 17:27 59 L 16 152/71 07/08/24 17:25 65 16 07/08/24 15:42 61 18 184/92 07/08/24 15:21 98.7 F 74 18 195/105 BP Pulse Ox 07/09/24 07:00 136/76 93 L 07/09/24 02:00 97 07/08/24 20:39 95 07/08/24 20:00 95 07/08/24 19:29 95 07/08/24 18:38 96 07/08/24 17:30 98 07/08/24 17:27 97 07/08/24 17:25 167/76 95 07/08/24 15:42 96 07/08/24 15:21 98 Intake and Output 07/08/24 07/09/24 07/09/24 22:59 06:59 14:59 Other: # Voids 2 2 Weight 65.771 kg Results 07/08/24 16:10 07/08/24 16:10 Cardiac Enzymes 07/08/24 07/08/24 Range/Units 16:10 16:10 AST 20 (17-59) U/L Troponin I <0.012 (0.000-0.034) ng/mL CBC 07/08/24 Range/Units 16:10 WBC 9.8 (3.8-10.6) k/uL RBC 4.12 L (4.30-5.90) m/uL Hgb 15.3 (13.0-17.5) gm/dL Hct 45.5 (39.0-53.0) % Plt Count 203 (150-450) k/uL Comprehensive Metabolic Panel 07/08/24 Range/Units 16:10 Sodium 129 L (137-145) mmol/L Potassium 4.4 (3.5-5.1) mmol/L Chloride 94 L (98-107) mmol/L Carbon Dioxide 27 (22-30) mmol/L BUN 19 (9-20) mg/dL Creatinine 0.54 L (0.66-1.25) mg/dL Glucose 92 (74-99) mg/dL Calcium 8.9 (8.4-10.2) mg/dL AST 20 (17-59) U/L ALT 12 (4-49) U/L Alkaline Phosphatase 67 (38-126) U/L Total Protein 6.6 (6.3-8.2) g/dL Albumin 4.3 (3.5-5.0) g/dL Current Medications Generic Name Dose Route Start Last Admin Trade Name Freq PRN Reason Stop Dose Admin Acyclovir 400 mg 07/09/24 09:00 07/09/24 08:46 Acyclovir 200 Mg Cap PO 400 mg BID CHATO Administration Aspirin 81 mg 07/09/24 09:00 07/09/24 08:47 Aspirin 81 Mg PO 81 mg DAILY CHATO Administration Calcium Carbonate 1 each 07/09/24 09:00 07/09/24 08:47 Calcium Carb-Vit D 500 Mg-5 Mcg Tab PO 1 each DAILY CHATO Administration Carvedilol 3.125 mg 07/08/24 21:00 07/09/24 06:33 Carvedilol 3.125 Mg Tab PO 3.125 mg AC-BID CHATO Administration Cyclosporine 1 drops 07/08/24 21:00 07/09/24 08:47 Cyclosporine 0.05% Ophth 0.4 Ml Droperette BOTH EYES 1 drops Q12H CHATO Administration Sodium Chloride 1,000 mls @ 20 mls/hr 07/08/24 17:45 07/08/24 18:40 Saline 0.9% IV 20 mls/hr .Q24H CHATO Administration Levothyroxine Sodium 50 mcg 07/09/24 06:30 07/09/24 06:33 Levothyroxine 50 Mcg Tab PO 50 mcg 0630 CHATO Administration Naloxone HCl 0.2 mg 07/08/24 17:44 Naloxone 0.4 Mg/Ml 1 Ml Vial IV Q2M PRN Opioid Reversal Cresemba ( 2 each 07/09/24 09:00 Isavuconazonium PO Sulfate) 186 Mg DAILY CHATO Capsule Prevymis (Letermovir 1 each 07/09/24 09:00 ) 480 Mg Tablet PO DAILY CHATO Pantoprazole Sodium 40 mg 07/09/24 07:30 07/09/24 06:33 Pantoprazole 40 Mg Tablet PO 40 mg AC-BID CHATO Administration Prednisone 15 mg 07/09/24 09:00 07/09/24 08:47 Prednisone 5 Mg Tab PO 15 mg DAILY CHATO Administration Ursodiol 300 mg 07/08/24 21:00 07/09/24 08:47 Ursodiol 300 Mg Cap PO 300 mg BID CHATO Administration Intake and Output 07/08/24 07/09/24 07/09/24 22:59 06:59 14:59 Other: # Voids 2 2 Weight 65.771 kg 07/08/24 16:10 07/08/24 16:10
[2024-07-09] MEDS: PREVYMIS PO SCH (16:28)
[2024-07-09] MEDS: CRESEMBA 186 MG PO SCH (16:29)
--- NOTE | 2024-07-09 17:33 | US ---
EXAMINATION TYPE: US carotid duplex BILAT DATE OF EXAM: 07/09/2024 COMPARISON: NONE CLINICAL INDICATION: Male, 68 years old with history of syncope; dizzy Additional History: R42* Dizziness TECHNIQUE: Grayscale, color Doppler and spectral Doppler evaluation of the bilateral carotid systems and vertebral arteries. Indirect Doppler criteria was utilized. FINDINGS: EXAM MEASUREMENTS: RIGHT: Peak Systolic Velocity (PSV) cm/sec ----- Right CCA: 107 ----- Right ICA: 130 ----- Right ECA: 134 ICA/CCA ratio: 1.2 RIGHT: End Diastole cm/sec ----- Right CCA: 13 ----- Right ICA: 19 ----- Right ECA: 0 LEFT: Peak Systolic Velocity (PSV) cm/sec ----- Left CCA: 110 ----- Left ICA: 98.8 ----- Left ECA: 86.4 ICA/CCA ratio: .9 LEFT: End Diastole cm/sec ----- Left CCA: 15.4 ----- Left ICA: 14.5 ----- Left ECA: 0 VERTEBRALS (direction of flow): Right Vertebral: Antegrade Left Vertebral: Antegrade Rhythm: Normal Color Doppler imaging shows patency with blood flow throughout the carotid artery. Spectral waveforms are within normal limits. IMPRESSION: Right: 50-69% stenosis of the right internal carotid artery. Left: No hemodynamically significant stenosis. Criteria for Assigning % of Stenosis / Diameter reduction (Estimation based on the indirect measurements of the internal carotid artery velocities (ICA PSV). 1. Normal (no stenosis)=ICA PSV < 125 cm/s: ratio < 2.0: ICA EDV<40 cm/s. 2. Less than 50% stenosis=ICA PSV < 125 cm/s: ratio < 2.0: ICA EDV<40 cm/s. 3. 50 to 69% stenosis=ICA PSV of 125 to 230 cm/s: ration 2.0 ? 4.0: ICA EDV 40-100 cm/s. 4. Greater than 70% stenosis to near occlusion= ICA PSV > 230 cm/s: ratio > 4.0: ICA EDV > 100 cm/s. 5. Near occlusion= ICA PSV velocities may be low or undetectable: variable ratio and ICA EDV. 6. Total occlusion=unable to detect flow. [facility], , 07/09/2024 5:30 PM
[2024-07-10] MEDS: IBUPROFEN 400 MG TAB PO PRN (06:47)
[2024-07-10 09:47] LABS: Basophils # (A) 0.07 X 10*3/uL (0.00-0.10); Basophils % (A) 0.8 %; Eosinophils % (A) 5.9 %; HCT 40.8 % (39.6-50.0); HGB 14.1 g/dL (13.0-17.0); Lymphocytes # (A) 0.68 X 10*3/uL (0.90-5.00); MCH 37.7 pg (27.0-32.0); MCHC 34.6 g/dL (32.0-37.0); MCV 109.1 FL (80.0-97.0); Mean Platelet Volume 11.4 FL (9.5-12.2); Monocytes # (A) 1.01 X 10*3/uL (0.20-1.00); NRBC Per 100 WBC 0 X 10*3/uL (0.00-0.01); Neutrophils # (A) 6.11 X 10*3/uL (1.80-7.70); Neutrophils % (A) 72.4 %; Platelet Count 218 X 10*3/uL (140-440); RBC 3.74 X 10*6/uL (4.40-5.60); RDW 13.5 % (11.5-14.5); WBC 8.45 X 10*3/uL (4.50-10.00)
[2024-07-10 09:58] LABS: BUN/Creat Ratio 18.67 Ratio (12.00-20.00); Blood Urea Nitrogen 16.8 mg/dL (9.0-27.0); Carbon Dioxide 29.2 mmol/L (21.6-31.8); Chloride 99 mmol/L (96-109); Glucose 95 mg/dL (70-110); Sodium 137 mmol/L (135-145)
--- NOTE | 2024-07-10 13:58 | P.GSCN ---
History of Present Illness History of present illness: 68-year-old gentleman patient came to the emergency room with history of dizzy spell at home and he fell down on the ground woke up with no evidence of TIA or Emrys fugax patient had a CTA done and carotid ultrasound is brain shows no evidence of infarction patient also has a history of leukemia patient has been treated with bone marrow transplant due to significant. Patient also has his tory of bilateral hip tendon infection femur done in the past also patient had history of hemothorax 8 years ago which was drained at [facility]. Patient has a history of prostate cancer 3 years ago Patient was seen in his room is his vital signs stable neuroexam patient is to time and place no history of TIA or embolus vigorous motor function upper and lower extremity motor function are normal Femorals are 1+ bilateral PT 1+ bilateral patient has some brawny induration of the lower extremity Neck examination no bruit appreciated Chest clear good entry both lung. Second sound present Abdomen soft nontender normal motor function Carotid ultrasound shows 50 to 69% stenosis on the right side left side no hemodynamic significant stenosis Plan is follow-up with closely Past Medical History Past Medical History: No Reported History Additional Past Medical History / Comment(s): Leukemia History of Any Multi-Drug Resistant Organisms: None Reported Past Surgical History: Appendectomy, Orthopedic Surgery Additional Past Surgical History / Comment(s): Right hip surgery with ORIF, back surgery, right femur fracture Past Anesthesia/Blood Transfusion Reactions: No Reported Reaction Past Psychological History: No Psychological Hx Reported Smoking Status: Never smoker Past Alcohol Use History: None Reported Past Drug Use History: None Reported - Past Family History Father Family Medical History: Diabetes Mellitus Sister(s) Family Medical History: Diabetes Mellitus Medications and Allergies Home Medications Medication Instructions Recorded Confirmed Type Acyclovir [Zovirax] 400 mg PO BID 08/13/23 07/08/24 History Levothyroxine Sodium [Synthroid] 50 mcg PO DAILY 08/13/23 07/08/24 History Aspirin EC [Ecotrin Low Dose] 81 mg PO DAILY 07/08/24 07/08/24 History Calcium Citrate/Vitamin D3 1 tab PO DAILY 07/08/24 07/08/24 History [Calcium Cit 315-Vit D3 6.25 Mcg (250 Iu)] Diclofenac Sodium Gel [Voltaren 1% 1 applic TOPICAL BID PRN 07/08/24 07/08/24 History Gel] Hydrocortisone Cream 1 applic TOPICAL BID 07/08/24 07/08/24 History [Hydrocortisone 1% Cream] Isavuconazonium Sulfate [Cresemba] 372 mg PO DAILY 07/08/24 07/08/24 History Letermovir [Prevymis] 480 mg PO DAILY 07/08/24 07/08/24 History Lidocaine 5% Patch [Lidoderm] 1 patch TOPICAL DAILY 07/08/24 07/08/24 History Omeprazole 20 mg PO AC-BID 07/08/24 07/08/24 History Triamcinolone 0.1% Cream [Kenalog 1 applicatio TOPICAL BID 07/08/24 07/08/24 History 0.1% Cream] carvediloL [Coreg] 3.125 mg PO BID 07/08/24 07/08/24 History cycloSPORINE 0.05% OPHTH SOLN 1 applicator BOTH EYES Q12H 07/08/24 07/08/24 History [Restasis] predniSONE 15 mg PO DAILY 07/08/24 07/08/24 History ursodioL [Ursodiol] 300 mg PO BID 07/08/24 07/08/24 History Allergies Allergy/AdvReac Type Severity Reaction Status Date / Time prednisone Allergy Hallucinati Verified 07/08/24 18:36 ons adhesive tape AdvReac Swelling Verified 07/08/24 18:36 Surgical - Exam Vital Signs Temp Pulse Resp BP Pulse Ox 98.7 F 74 18 195/105 98 07/08/24 15:21 07/08/24 15:21 07/08/24 15:21 07/08/24 15:21 07/08/24 15:21 Results - Labs 07/10/24 04:38 07/10/24 04:38 Abnormal Lab Results - Last 24 Hours (Table) 07/10/24 Range/Units 04:38 RBC 3.74 L (4.40-5.60) X 10*6/uL MCV 109.1 H (80.0-97.0) FL MCH 37.7 H (27.0-32.0) pg Immature Gran # 0.08 H (0.00-0.04) X 10*3/uL Lymphocytes # 0.68 L (0.90-5.00) X 10*3/uL Monocytes # 1.01 H (0.20-1.00) X 10*3/uL Eosinophils # 0.50 H (0.04-0.35) X 10*3/uL Diabetes panel 07/10/24 Range/Units 04:38 Sodium 137 (135-145) mmol/L Potassium 5.0 (3.5-5.5) mmol/L Chloride 99 (96-109) mmol/L Carbon Dioxide 29.2 (21.6-31.8) mmol/L BUN 16.8 (9.0-27.0) mg/dL Creatinine 0.9 (0.6-1.5) mg/dL Glucose 95 (70-110) mg/dL Calcium 9.0 (8.7-10.3) mg/dL Calcium panel 07/10/24 Range/Units 04:38 Calcium 9.0 (8.7-10.3) mg/dL Pituitary panel 07/10/24 Range/Units 04:38 Sodium 137 (135-145) mmol/L Potassium 5.0 (3.5-5.5) mmol/L Chloride 99 (96-109) mmol/L Carbon Dioxide 29.2 (21.6-31.8) mmol/L BUN 16.8 (9.0-27.0) mg/dL Creatinine 0.9 (0.6-1.5) mg/dL Glucose 95 (70-110) mg/dL Calcium 9.0 (8.7-10.3) mg/dL Adrenal panel 07/10/24 Range/Units 04:38 Sodium 137 (135-145) mmol/L Potassium 5.0 (3.5-5.5) mmol/L Chloride 99 (96-109) mmol/L Carbon Dioxide 29.2 (21.6-31.8) mmol/L BUN 16.8 (9.0-27.0) mg/dL Creatinine 0.9 (0.6-1.5) mg/dL Glucose 95 (70-110) mg/dL Calcium 9.0 (8.7-10.3) mg/dL
--- NOTE | 2024-07-10 16:35 | P.HPIM ---
History of Present Illness H&P Date: 07/10/24 Chief Complaint: Syncope 68-year-old male with history of bone marrow transplant presents to the emergency department after syncopal episode. Patient reports that he has been feeling pretty lightheaded over the last several days. He had another fall previously about a week and a half ago. Patient recently admitted to the [facility] for [id number] episode. Today he was on the phone. He stood up tried to get ready when he fell. Landed on the ground not sure how long he was on the ground for. States that he did hit his head and hurt his back. He has chronic back pain states that his back pain does not seem to bother him currently. Contacted his nurse from his transplant doctor told him that he needs to come to the ER to be evaluated. Patient recently had his steroid medications increased. Does take immunosuppressive medications EKG does show sinus rhythm with PVCs and left bundle branch block. He states he has followed with a systems support officer at [facility] and believes he had an echo done in the past few months, reviewed [facility] portal with patient's and no echo report available. Labs reviewed: Sodium 129, potassium 4.4, creatinine 0.54, troponin negative, magnesium 1.9. Orthostatic vital signs were negative yesterday. Review of Systems REVIEW OF SYSTEMS: CONSTITUTIONAL: No fever, no malaise, no fatigue. HEENT: No recent visual problems or hearing problems. Denied any sore throat. CARDIOVASCULAR: No chest pain, orthopnea, PND, no palpitations, no syncope. PULMONARY: No shortness of breath, no cough, no hemoptysis. GASTROINTESTINAL: No diarrhea, no nausea, no vomiting, no abdominal pain. NEUROLOGICAL: No headaches, no weakness, no numbness. HEMATOLOGICAL: Denies any bleeding or petechiae. GENITOURINARY: Denies any burning micturition, frequency, or urgency. MUSCULOSKELETAL/RHEUMATOLOGICAL: Denies any joint pain, swelling, or any muscle pain. ENDOCRINE: Denies any polyuria or polydipsia. The rest of the 14-point review of systems is negative. Past Medical History Past Medical History: No Reported History Additional Past Medical History / Comment(s): Leukemia History of Any Multi-Drug Resistant Organisms: None Reported Past Surgical History: Appendectomy, Orthopedic Surgery Additional Past Surgical History / Comment(s): Right hip surgery with ORIF, back surgery, right femur fracture Past Anesthesia/Blood Transfusion Reactions: No Reported Reaction Past Psychological History: No Psychological Hx Reported Smoking Status: Never smoker Past Alcohol Use History: None Reported Past Drug Use History: None Reported - Past Family History Father Family Medical History: Diabetes Mellitus Sister(s) Family Medical History: Diabetes Mellitus Medications and Allergies Home Medications Medication Instructions Recorded Confirmed Type Acyclovir [Zovirax] 400 mg PO BID 08/13/23 07/08/24 History Levothyroxine Sodium [Synthroid] 50 mcg PO DAILY 08/13/23 07/08/24 History Aspirin EC [Ecotrin Low Dose] 81 mg PO DAILY 07/08/24 07/08/24 History Calcium Citrate/Vitamin D3 1 tab PO DAILY 07/08/24 07/08/24 History [Calcium Cit 315-Vit D3 6.25 Mcg (250 Iu)] Diclofenac Sodium Gel [Voltaren 1% 1 applic TOPICAL BID PRN 07/08/24 07/08/24 History Gel] Hydrocortisone Cream 1 applic TOPICAL BID 07/08/24 07/08/24 History [Hydrocortisone 1% Cream] Isavuconazonium Sulfate [Cresemba] 372 mg PO DAILY 07/08/24 07/08/24 History Letermovir [Prevymis] 480 mg PO DAILY 07/08/24 07/08/24 History Lidocaine 5% Patch [Lidoderm] 1 patch TOPICAL DAILY 07/08/24 07/08/24 History Omeprazole 20 mg PO AC-BID 07/08/24 07/08/24 History Triamcinolone 0.1% Cream [Kenalog 1 applicatio TOPICAL BID 07/08/24 07/08/24 History 0.1% Cream] carvediloL [Coreg] 3.125 mg PO BID 07/08/24 07/08/24 History cycloSPORINE 0.05% OPHTH SOLN 1 applicator BOTH EYES Q12H 07/08/24 07/08/24 History [Restasis] predniSONE 15 mg PO DAILY 07/08/24 07/08/24 History ursodioL [Ursodiol] 300 mg PO BID 07/08/24 07/08/24 History Allergies Allergy/AdvReac Type Severity Reaction Status Date / Time prednisone Allergy Hallucinati Verified 07/08/24 18:36 ons adhesive tape AdvReac Swelling Verified 07/08/24 18:36 Physical Exam Vitals: Vital Signs Temp Pulse Pulse Resp BP BP BP 07/09/24 07:00 97.7 F 52 L 14 07/09/24 02:00 97.4 F L 62 17 149/76 07/08/24 20:39 65 18 128/75 07/08/24 20:00 98.0 F 63 17 157/75 07/08/24 19:29 58 L 18 146/77 07/08/24 18:38 84 18 143/81 07/08/24 17:30 66 16 166/81 07/08/24 17:27 59 L 16 152/71 07/08/24 17:25 65 16 07/08/24 15:42 61 18 184/92 07/08/24 15:21 98.7 F 74 18 195/105 BP Pulse Ox 07/09/24 07:00 136/76 93 L 07/09/24 02:00 97 07/08/24 20:39 95 07/08/24 20:00 95 07/08/24 19:29 95 07/08/24 18:38 96 07/08/24 17:30 98 07/08/24 17:27 97 07/08/24 17:25 167/76 95 07/08/24 15:42 96 07/08/24 15:21 98 Intake and Output 07/08/24 07/09/24 07/09/24 22:59 06:59 14:59 Other: # Voids 2 2 Weight 65.771 kg General Impression: Alert and oriented x3, not in acute distress HEENT: Normocephalic atraumatic, extra-ocular movements intact, pupils equal and reactive to light bilaterally, mucous membranes moist. Cardiovascular: Heart regular rate and rhythm Chest: Able to complete full sentences, no retractions, no tachypnea Abdomen: abdomen soft, non-tender, non-distended, no organomegaly Musculoskeletal: Pulses present and equal in all extremities, no peripheral edema Motor: no focal deficits noted Neurological: CN II-XII grossly intact, no focal motor or sensory deficits noted Skin: Intact with no visualized rashes Psych: Normal affect and mood Results CBC & Chem 7: 07/10/24 04:38 07/10/24 04:38 Labs: Abnormal Lab Results - Last 24 Hours (Table) 07/08/24 07/08/24 Range/Units 16:10 16:10 RBC 4.12 L (4.30-5.90) m/uL MCV 110.3 H (80.0-100.0) fL MCH 37.0 H (25.0-35.0) pg Neutrophils # 8.0 H (1.3-7.7) k/uL Lymphocytes # 0.4 L (1.0-4.8) k/uL Macrocytosis Marked A Sodium 129 L (137-145) mmol/L Chloride 94 L (98-107) mmol/L Creatinine 0.54 L (0.66-1.25) mg/dL Thrombosis Risk Factor Assmnt - Choose All That Apply Any of the Below Risk Factors Present?: Yes Each Factor Represents 1 point: Medical pt on bed rest Other Risk Factors: Yes Each Risk Factor Represents 2 Points: Age 61-74 years Thrombosis Risk Factor Assessment Total Risk Factor Score: 3 Thrombosis Risk Factor Assessment Level: Moderate Risk Assessment and Plan Assessment: 1. Acute syncope; medication effect versus cardiac arrhythmia -Patient has been admitted to telemetry; her EKG and trend troponin -Orthostatic vital signs every shift; 2D echo; bilateral carotid Doppler -Cardiology on board; appreciate recommendations 2. PVCs; medication effect versus cardiac arrhythmia versus electrolyte abnormality -Patient remains on telemetry; currently on Coreg 3.125 mg twice daily 3. Hyponatremia; sodium at 129; patient replaced on IV fluids; monitor electrolytes periodically 4. Leukemia; history of bone marrow transplant 5. Hypothyroidism; levothyroxine 50 mcg daily 6. Hypertension; Coreg 3.125 mg twice daily 7. History of coronary artery disease; status post PCI; patient remains on aspirin and beta-blockers DVT prophylaxis; SCDs CODE STATUS full code;
--- NOTE | 2024-07-10 16:38 | P.PN ---
Subjective Progress Note Date: 07/10/24 68-year-old male with history of bone marrow transplant presents to the emergency department after syncopal episode. Patient reports that he has been feeling pretty lightheaded over the last several days. He had another fall previously about a week and a half ago. Patient recently admitted to the [facility] for [id number] episode. Today he was on the phone. He stood up tried to get ready when he fell. Landed on the ground not sure how long he was on the ground for. States that he did hit his head and hurt his back. He has chronic back pain states that his back pain does not seem to bother him currently. Contacted his nurse from his transplant doctor told him that he needs to come to the ER to be evaluated. Patient recently had his steroid medications increased. Does take immunosuppressive medications EKG does show sinus rhythm with PVCs and left bundle branch block. He states he has followed with a home care coordinator at [facility] and believes he had an echo done in the past few months, reviewed [facility] portal with patient's and no echo report available. Labs reviewed: Sodium 129, potassium 4.4, creatinine 0.54, troponin negative, magnesium 1.9. Orthostatic vital signs were negative yesterday. --- Carotid Doppler completed and reveals right ICA stenosis of 50 to 69%; vascular surgery is consulted -Echocardiogram has been ordered and pending Objective - Vital Signs Vital signs: Vital Signs Temp 97.7 F 07/10/24 07:00 Pulse 56 L 07/10/24 07:00 Resp 16 07/10/24 07:00 BP 129/68 07/10/24 07:00 Pulse Ox 100 07/10/24 07:00 FiO2 Intake & Output 07/09/24 07/10/24 07/10/24 18:59 06:59 18:59 Other: # Voids 4 3 # Bowel Movements 1 - Exam HEENT: Head is atraumatic, normocephalic. Pupils are equal, round. Sclerae anicteric. Conjunctivae are clear. Mucous membranes of the mouth are moist. Neck is supple. There is no jugular venous distention. No carotid bruit is heard. CHEST EXAMINATION: Lungs are clear to auscultation. No chest wall tenderness is noted on palpation or with deep breathing. HEART EXAMINATION: Heart regular rate and rhythm. S1, S2 heard. No murmurs, gallops or rub. ABDOMEN: Soft, nontender. Bowel sounds are heard. EXTREMITIES: 2+ peripheral pulses with no evidence of peripheral edema and no calf tenderness noted. NEUROLOGIC EXAMINATION: Patient is awake, alert and oriented x3. - Labs CBC & Chem 7: 07/10/24 04:38 07/10/24 04:38 Labs: Abnormal Lab Results - Last 24 Hours (Table) 07/08/24 07/10/24 Range/Units 16:10 04:38 RBC 3.74 L (4.40-5.60) X 10*6/uL MCV 109.1 H (80.0-97.0) FL MCH 37.7 H (27.0-32.0) pg Immature Gran # 0.08 H (0.00-0.04) X 10*3/uL Lymphocytes # 0.68 L (0.90-5.00) X 10*3/uL Monocytes # 1.01 H (0.20-1.00) X 10*3/uL Eosinophils # 0.50 H (0.04-0.35) X 10*3/uL TSH 33.500 H (0.465-4.680) mIU/L Assessment and Plan Assessment: 1. Acute syncope; medication effect versus cardiac arrhythmia -Patient has been admitted to telemetry; her EKG and trend troponin -Orthostatic vital signs every shift; 2D echo; bilateral carotid Doppler -Cardiology on board; appreciate recommendations 2. PVCs; medication effect versus cardiac arrhythmia versus electrolyte abnormality -Patient remains on telemetry; currently on Coreg 3.125 mg twice daily 3. Hyponatremia; sodium at 129; patient replaced on IV fluids; monitor electrolytes periodically 4. Leukemia; history of bone marrow transplant 5. Hypothyroidism; levothyroxine 50 mcg daily 6. Hypertension; Coreg 3.125 mg twice daily 7. History of coronary artery disease; status post PCI; patient remains on aspirin and beta-blockers DVT prophylaxis; SCDs CODE STATUS full code;
--- NOTE | 2024-07-10 16:52 | P.PN ---
Subjective Progress Note Date: 07/10/24 History of present illness: Patient is a pleasant 68-year-old male with significant past medical history of leukemia status post bone marrow transplant September 2023, [id number], history of kyphoplasty, CAD status post PCI who presented to the emergency room with syncope. He has previously followed with reproduction order processor Dr. Myers, and more recently has seen reproduction order processor at [facility] Dr. Jose Cabrales. He states that yesterday he got up from the recliner and was attempting to walk to the bed when he felt like he was going to pass out and then woke up on the floor. He denies any chest pain or pressure. No shortness of breath, palpitations. He does have episodes of intermittent dizziness and just not feeling right. EKG does show sinus rhythm with PVCs and left bundle branch block. He states he has followed with a reproduction order processor at [facility] and believes he had an echo done in the past few months, reviewed [facility] portal with patient's and no echo report available. Labs reviewed: Sodium 129, potassium 4.4, creatinine 0.54, troponin negative, magnesium 1.9. Orthostatic vital signs were negative yesterday. 07/10/2024 He reports having back pain overnight. He does feel occasional palpitations. No chest pain or pressure. Carotid ultrasound showed right carotid stenosis 50- 69%, left carotid with no significant stenosis. TSH abnormal 33, free T41.0. PHYSICAL EXAMINATION: This is a 68-year-old male in no apparent distress at the time of my examination. HEENT: Head is atraumatic, normocephalic. Pupils are equal, round. Sclerae anicteric. Conjunctivae are clear. Mucous membranes of the mouth are moist. Neck is supple. There is no jugular venous distention. No carotid bruit is heard. CHEST EXAMINATION: Lungs are clear to auscultation. No chest wall tenderness is noted on palpation or with deep breathing. HEART EXAMINATION: Heart regular rate and rhythm. S1, S2 heard. No murmurs, gallops or rub. ABDOMEN: Soft, nontender. Bowel sounds are heard. EXTREMITIES: 2+ peripheral pulses with no evidence of peripheral edema and no calf tenderness noted. NEUROLOGIC EXAMINATION: Patient is awake, alert and oriented x3. IMPRESSION AND PLAN: Leukemia History of bone marrow transplant Syncope Hyponatremia CAD status post PCI Left bundle branch block PVCs Moderate right carotid stenosis Hypothyroidism PLAN: Symptoms could be related to medications or may possibly be related to a cardiac arrhythmia. Will check echocardiogram to evaluate heart function and structure. Will check treadmill stress echo tomorrow to evaluate chronotropic response, okay if he does not meet heart rate goal. Likely recommend outpatient event monitor at discharge. Further recommendations pending clinical course. I am dictating on behalf of Dr. Tushar Matamoros's history/physical and assessment/plan. Objective - Vital Signs Vital signs: Vital Signs Temp 97.7 F 07/10/24 07:00 Pulse 56 L 07/10/24 07:00 Resp 16 07/10/24 07:00 BP 129/68 07/10/24 07:00 Pulse Ox 100 07/10/24 07:00 FiO2 Intake & Output 07/09/24 07/10/24 07/10/24 18:59 06:59 18:59 Other: # Voids 4 3 # Bowel Movements 1 - Labs CBC & Chem 7: 07/10/24 04:38 07/10/24 04:38 Labs: Abnormal Lab Results - Last 24 Hours (Table) 07/08/24 07/10/24 Range/Units 16:10 04:38 RBC 3.74 L (4.40-5.60) X 10*6/uL MCV 109.1 H (80.0-97.0) FL MCH 37.7 H (27.0-32.0) pg Immature Gran # 0.08 H (0.00-0.04) X 10*3/uL Lymphocytes # 0.68 L (0.90-5.00) X 10*3/uL Monocytes # 1.01 H (0.20-1.00) X 10*3/uL Eosinophils # 0.50 H (0.04-0.35) X 10*3/uL TSH 33.500 H (0.465-4.680) mIU/L
--- NOTE | 2024-07-11 10:31 | P.PN ---
Subjective Progress Note Date: 07/11/24 History of present illness: Patient is a pleasant 68-year-old male with significant past medical history of leukemia status post bone marrow transplant September 2023, [id number], history of kyphoplasty, CAD status post PCI who presented to the emergency room with syncope. He has previously followed with typesetting machine tender Dr. Myers, and more recently has seen typesetting machine tender at [facility] Dr. Jose Cabrales. He states that yesterday he got up from the recliner and was attempting to walk to the bed when he felt like he was going to pass out and then woke up on the floor. He denies any chest pain or pressure. No shortness of breath, palpitations. He does have episodes of intermittent dizziness and just not feeling right. EKG does show sinus rhythm with PVCs and left bundle branch block. He states he has followed with a typesetting machine tender at [facility] and believes he had an echo done in the past few months, reviewed [facility] portal with patient's and no echo report available. Labs reviewed: Sodium 129, potassium 4.4, creatinine 0.54, troponin negative, magnesium 1.9. Orthostatic vital signs were negative yesterday. 07/10/2024 He reports having back pain overnight. He does feel occasional palpitations. No chest pain or pressure. Carotid ultrasound showed right carotid stenosis 50- 69%, left carotid with no significant stenosis. TSH abnormal 33, free T41.0. 07/11 Patient seen and examined. Patient is scheduled for stress test today to evaluate chronotropic response to exercise. Patient denies chest pain or palpitations. Blood pressure 155/73, heart rate 60, pulse ox 96% on room air. PHYSICAL EXAMINATION: This is a 68-year-old male in no apparent distress at the time of my examination. HEENT: Head is atraumatic, normocephalic. Pupils are equal, round. Sclerae anicteric. Conjunctivae are clear. Mucous membranes of the mouth are moist. Neck is supple. There is no jugular venous distention. No carotid bruit is heard. CHEST EXAMINATION: Lungs are clear to auscultation. No chest wall tenderness is noted on palpation or with deep breathing. HEART EXAMINATION: Heart regular rate and rhythm. S1, S2 heard. No murmurs, gallops or rub. ABDOMEN: Soft, nontender. Bowel sounds are heard. EXTREMITIES: 2+ peripheral pulses with no evidence of peripheral edema and no calf tenderness noted. NEUROLOGIC EXAMINATION: Patient is awake, alert and oriented x3. IMPRESSION AND PLAN: Leukemia History of bone marrow transplant Syncope Hyponatremia CAD status post PCI Left bundle branch block PVCs Moderate right carotid stenosis Hypothyroidism PLAN: Symptoms could be related to medications or may possibly be related to a cardiac arrhythmia. Obtain echocardiogram to evaluate heart function and structure. Obtain treadmill stress echo today to evaluate chronotropic response to exercise, okay if he does not meet heart rate goal. Likely recommend outpatient event monitor at discharge. Further recommendations pending clinical course. Nurse practitioner note has been reviewed, I agree with documented findings and plan of care. Patient was seen and examined. Objective - Vital Signs Vital signs: Vital Signs Temp 97.3 F L 07/11/24 00:50 Pulse 58 L 07/11/24 00:50 Resp 16 07/11/24 00:50 BP 131/67 07/11/24 00:50 Pulse Ox 98 07/11/24 00:50 FiO2 Intake & Output 07/10/24 07/11/24 07/11/24 18:59 06:59 18:59 Intake Total 118 Balance 118 Intake: Oral 118 Other: # Voids 3 2 - Labs CBC & Chem 7: 07/10/24 04:38 07/10/24 04:38 Labs: Abnormal Lab Results - Last 24 Hours (Table) 07/10/24 Range/Units 04:38 RBC 3.74 L (4.40-5.60) X 10*6/uL MCV 109.1 H (80.0-97.0) FL MCH 37.7 H (27.0-32.0) pg Immature Gran # 0.08 H (0.00-0.04) X 10*3/uL Lymphocytes # 0.68 L (0.90-5.00) X 10*3/uL Monocytes # 1.01 H (0.20-1.00) X 10*3/uL Eosinophils # 0.50 H (0.04-0.35) X 10*3/uL
--- NOTE | 2024-07-11 11:44 | CA ---
Transthoracic Echo Report Name: Juan Acosta Age: 68 Gender: M : 1955 Exam Date: 07/11/2024 07:43 Exam Location: [facility] Ht (in): 66 Wt (lb): 145 Ordering Physician: Chayito Bryan Attending/Referring Phys: Rotor Balancer Marialuisa Vásquez RDCS Procedure CPT: Indications: Syncope Cardiac Hx: Technical Quality: Good Contrast 1: Total Dose (mL): Contrast 2: Total Dose (mL): MEASUREMENTS (Male / Female) Normal Values 2D ECHO LV Diastolic Diameter PLAX 4.7 cm 4.2 - 5.9 / 3.9 - 5.3 cm LV Systolic Diameter PLAX 3.6 cm IVS Diastolic Thickness 1.1 cm 0.6 - 1.0 / 0.6 - 0.9 cm LVPW Diastolic Thickness 0.9 cm 0.6 - 1.0 / 0.6 - 0.9 cm LV Relative Wall Thickness 0.4 RV Internal Dim ED PLAX 2.2 cm LA Systolic Diameter LX 3.6 cm 3.0 - 4.0 / 2.7 - 3.8 cm LV Diastolic Volume MOD BP 70.7 cm??? 67 - 155 / 56 - 104 cm??? LV Systolic Volume MOD BP 40.6 cm??? 22 - 58 / 19 - 49 cm??? LV Ejection Fraction MOD BP 42.6 % >= 55 % LV Cardiac Index MOD BP 962.0 cm???/min???m??? LV Diastolic Volume MOD 4C 56.0 cm??? LV Systolic Volume MOD 4C 37.1 cm??? LV Ejection Fraction MOD 4C 33.7 % LV Cardiac Index MOD 4C 601.2 cm???/min???m??? LV Diastolic Length 4C 6.8 cm LV Systolic Length 4C 5.9 cm LV Diastolic Volume MOD 2C 82.7 cm??? LV Systolic Volume MOD 2C 44.7 cm??? LV Ejection Fraction MOD 2C 45.9 % LV Cardiac Index MOD 2C 1210.7 cm???/min???m??? LV Diastolic Length 2C 7.4 cm LV Systolic Length 2C 6.5 cm M-MODE Aortic Root Diameter MM 3.3 cm LA Systolic Diameter MM 3.2 cm LA Ao Ratio MM 1.0 AV Cusp Separation MM 2.2 cm DOPPLER AI Peak Velocity 254.1 cm/s AI Peak Gradient 25.8 mmHg AI Pressure Half Time 2435.9 ms Mitral E Point Velocity 60.5 cm/s Mitral A Point Velocity 73.3 cm/s Mitral E to A Ratio 0.8 MV Deceleration Time 367.3 ms MV E' Velocity 3.9 cm/s Mitral E to MV E' Ratio 15.5 TR Peak Velocity 225.2 cm/s TR Peak Gradient 20.3 mmHg FINDINGS Left Ventricle Left ventricular ejection fraction is estimated at 30-35 %. Left ventricular cavity size normal. Severely reduced global left ventricular systolic function. Right Ventricle Normal right ventricular size and function. Right ventricular systolic pressure within normal limits. Right Atrium Normal right atrial size. Left Atrium Mild left atrial dilatation. Mitral Valve Structurally normal mitral valve. Mild to moderate mitral regurgitation. No mitral stenosis.mitral annular calcification. Aortic Valve No aortic stenosis. Mild aortic regurgitation. No aortic stenosis.aortic valve sclerosis. Tricuspid Valve Structurally normal tricuspid valve. Mild tricuspid regurgitation. No tricuspid stenosis. Pulmonic Valve Structurally normal pulmonic valve. Trace pulmonic regurgitation. No pulmonic stenosis. Pericardium No pericardial or pleural effusion. Aorta Normal size aortic root and proximal ascending aorta. CONCLUSIONS 1. Severe global hypokinesis of the left ventricle 2. Mild to moderate mitral with mild tricuspid regurgitation and no evidence of pulmonary hypertension 3. Mild aortic regurgitation Previewed by: Dr. William Hough MD (Electronically Signed) Final Date: 11 July 2024 11:43
[2024-07-11] MEDS: SACUBITRIL/VALSARTAN 24 MG-26 MG TABLET PO SCH (13:22)
--- NOTE | 2024-07-11 14:53 | P.PN ---
Progress Note - Text 68-year-old gentleman fall at home. Had no TIA mischievous CT scan of the brain shows no intracranial bleed patient had a carotid ultrasound which showed right side 50-69 left side within normal limit his neuroexam is normal scheduled to have a stress test
--- NOTE | 2024-07-12 06:34 | P.PN ---
Subjective Progress Note Date: 07/11/24 Patient evaluated today in follow up currently resting in bed. He is having no acute complaints at this time. Plan for possible stress test today. His echocardiogram comes back with an EF of 30-35% severe global hypokinesis of the left ventricle, mild to moderate mitral and mild TR. Mild aortic regurgitation. Based on outside reports his prior EF was 40-45% from reports at [facility]. [id number]. Sodium better at 137. Review of Systems Constitutional: Denied any fatigue denied any fever. Cardio vascular: denied any chest pain, palpitations Gastrointestinal: denied any nausea, vomiting, diarrhea Pulmonary: Denied any shortness of breath cough Neurologic denied any new focal deficits All inpatient medications were reviewed and appropriate changes in these medications as dictated in the interval history and assessment and plan.\ PHYSICAL EXAMINATION: GENERAL: The patient is alert and oriented x3, not in any acute distress. Well developed, well nourished. HEENT: Pupils are round and equally reacting to light. EOMI. No scleral icterus. No conjunctival pallor. Normocephalic, atraumatic. No pharyngeal erythema. No thyromegaly. CARDIOVASCULAR: S1 and S2 present. No murmurs, rubs, or gallops. PULMONARY: Chest is clear to auscultation, no wheezing or crackles. ABDOMEN: Soft, nontender, nondistended, normoactive bowel sounds. No palpable organomegaly. MUSCULOSKELETAL: No joint swelling or deformity. EXTREMITIES: No cyanosis, clubbing, or pedal edema. NEUROLOGICAL: Gross neurological examination did not reveal any focal deficits. SKIN: No rashes. Assessment and Plan -Acute syncope; medication effect versus cardiac arrhythmia -PVCs; medication effect versus cardiac arrhythmia versus electrolyte abnormality -Hyponatremia; sodium at 129; patient replaced on IV fluids; monitor elect rolytes periodically -Carotid arterty disease with right ICA stenosis 50-69% -Leukemia; history of bone marrow transplant -Hypothyroidism; levothyroxine 50 mcg daily -Hypertension; Coreg 3.125 mg twice daily -History of coronary artery disease; status post PCI; patient remains on aspirin and beta-blockers DVT prophylaxis; SCDs CODE STATUS full code; -Patient remains on telemetry -currently on Coreg 3.125 mg twice daily, entresto twice daily -bilateral carotid Doppler completed -Cardiology on board; appreciate recommendations -Possible treadmill stress The impression and plan of care has been dictated by Darlene Townsend, Nurse Practitioner as directed. Dr. Wally MD I have performed a history and physical examination and medical decision making of this patient, discussed the same with the dictator, and agree with the dictators assessment and plan as written, documented as a scribe. Based on total visit time, I have performed more than 50% of this visit. Objective - Vital Signs Vital signs: Vital Signs Temp 98.2 F 07/11/24 07:15 Pulse 60 07/11/24 07:15 Resp 15 07/11/24 07:15 BP 155/73 07/11/24 07:15 Pulse Ox 96 07/11/24 07:15 FiO2 Intake & Output 07/10/24 07/11/24 07/11/24 18:59 06:59 18:59 Intake Total 118 Balance 118 Intake: Oral 118 Other: # Voids 3 2 1 - Labs CBC & Chem 7: 07/10/24 04:38 07/10/24 04:38 Assessment and Plan Time with Patient: Less than 30
[2024-07-12 06:37] LABS: African American GFR (CKD) >90 (>60 ml/min/1.73 sqM); Anion Gap 7 mmol/L; Blood Urea Nitrogen 19 mg/dL (9-20); Calcium 8.7 mg/dL (8.4-10.2); Carbon Dioxide 29 mmol/L (22-30); Chloride 96 mmol/L (98-107); Glucose 93 mg/dL (74-99); Non-African American GFR(CKD) >90 (>60 ml/min/1.73 sqM); Potassium 4.2 mmol/L (3.5-5.1); Sodium 132 mmol/L (137-145)
[2024-07-12] MEDS ORDERED: AMINOPHYLLINE 500 MG/20 ML VIAL IV PRN (07:00)
[2024-07-12] MEDS ORDERED: REGADENOSON 0.4 MG/5 ML SYRINGE IV PRN (07:00)
[2024-07-12] MEDS ORDERED: CAFFEINE CITRATE 60 MG/3 ML VIAL IV PRN (07:00)
[2024-07-12] MEDS ORDERED: REGADENOSON 0.4 MG/5 ML SYRINGE IV ONE (08:00)
--- NOTE | 2024-07-12 11:21 | P.PN ---
Subjective Progress Note Date: 07/12/24 History of present illness: Patient is a pleasant 68-year-old male with significant past medical history of leukemia status post bone marrow transplant September 2023, [id number], history of kyphoplasty, CAD status post PCI who presented to the emergency room with syncope. He has previously followed with exhaust and muffler repairer Dr. Myers, and more recently has seen exhaust and muffler repairer at [facility] Dr. Jose Cabrales. He states that yesterday he got up from the recliner and was attempting to walk to the bed when he felt like he was going to pass out and then woke up on the floor. He denies any chest pain or pressure. No shortness of breath, palpitations. He does have episodes of intermittent dizziness and just not feeling right. EKG does show sinus rhythm with PVCs and left bundle branch block. He states he has followed with a exhaust and muffler repairer at [facility] and believes he had an echo done in the past few months, reviewed [facility] portal with patient's and no echo report available. Labs reviewed: Sodium 129, potassium 4.4, creatinine 0.54, troponin negative, magnesium 1.9. Orthostatic vital signs were negative yesterday. 07/10/2024 He reports having back pain overnight. He does feel occasional palpitations. No chest pain or pressure. Carotid ultrasound showed right carotid stenosis 50- 69%, left carotid with no significant stenosis. TSH abnormal 33, free T41.0. 07/11 Patient seen and examined. Patient is scheduled for stress test today to evaluate chronotropic response to exercise. Patient denies chest pain or palpitations. Blood pressure 155/73, heart rate 60, pulse ox 96% on room air. 07/12 Patient seen and examined. Reviewed results of echocardiograms from his exhaust and muffler repairer, from and the one performed here with the patient. Due to a reduction in his EF, the treadmill stress echo that was scheduled for yesterday was canceled and patient is scheduled today for Lexiscan stress test. Patient did clear this with his oncologist at [facility]. Patient denies chest pain or shortness of breath. He states he slept on and off through the night but in general is feeling fine. Blood pressure 146/79, heart rate 54, pulse ox 96% on room air. Repeat blood work reveals sodium 132, creatinine 0.62. proBNP from yesterday 509. PHYSICAL EXAMINATION: This is a 68-year-old male in no apparent distress at the time of my examination. HEENT: Head is atraumatic, normocephalic. Pupils are equal, round. Sclerae anicteric. Conjunctivae are clear. Mucous membranes of the mouth are moist. Neck is supple. There is no jugular venous distention. No carotid bruit is heard. CHEST EXAMINATION: Lungs are clear to auscultation. No chest wall tenderness is noted on palpation or with deep breathing. HEART EXAMINATION: Heart regular rate and rhythm. S1, S2 heard. No murmurs, gallops or rub. ABDOMEN: Soft, nontender. Bowel sounds are heard. EXTREMITIES: 2+ peripheral pulses with no evidence of peripheral edema and no calf tenderness noted. NEUROLOGIC EXAMINATION: Patient is awake, alert and oriented x3. IMPRESSION AND PLAN: Leukemia History of bone marrow transplant Syncope Hyponatremia New cardiomyopathy, ischemic versus nonischemic and could be related to chemotherapy CAD status post PCI Left bundle branch block PVCs Moderate right carotid stenosis Hypothyroidism PLAN: Continue patient's home cardiac medications: Aspirin 81 mg daily, Coreg 3.125 mg twice daily Patient has been started on Entresto 24-26 mg twice daily Obtain Lexiscan Cardiolite stress test today Possible outpatient event monitor at discharge. Further recommendations pending clinical course. Nurse practitioner note has been reviewed, I agree with documented findings and plan of care. Patient was seen and examined. Objective - Vital Signs Vital signs: Vital Signs Temp 97.9 F 07/12/24 07:00 Pulse 54 L 07/12/24 07:00 Resp 17 07/12/24 07:00 BP 152/71 07/12/24 07:00 Pulse Ox 96 07/12/24 07:00 FiO2 Intake & Output 07/11/24 07/12/24 07/12/24 18:59 06:59 18:59 Intake Total 236 Balance 236 Intake: Oral 236 Other: Voiding Method Toilet # Voids 1 2 - Labs CBC & Chem 7: 07/10/24 04:38 07/12/24 05:53 Labs: Abnormal Lab Results - Last 24 Hours (Table) 07/11/24 07/12/24 Range/Units 12:23 05:53 Sodium 132 L (137-145) mmol/L Chloride 96 L (98-107) mmol/L Creatinine 0.62 L (0.66-1.25) mg/dL NT-Pro-B Natriuret Pep 509 H (0-125) pg/mL
--- NOTE | 2024-07-12 13:02 | CA ---
Lexiscan Nuclear Stress Test Report Name: Juan Acosta Exam Date: 07/12/2024 11:05 Exam Location: [place] [facility] Ht (in): 66 Wt (lb): 145 BSA: 1.74 Ordering Phys: Lamar Gonsales Referring Phys: ASAF Technologist: Romulo Ivy Age: 68 Gender: M : 1955 Procedure CPT: Indications: Reflex order-Stress test ICD-10 Codes: Patient History: Medications: SEE CHART Meds past 24 hrs: Pretest Chest Pain: STRESS TEST Lexiscan Protocol Exercise Duration (min:sec): 02:[address] Depressions (mm): Angina Score: Suazo Score: Resting HR (bpm): 64 Peak HR (bpm): 86 Resting BP (mmHg): 137 / 88 Peak BP (mmHg): 132 / 101 MPHR: 150 Target HR: 128 % MPHR: 57 METS: 1.0 Total Dose: Peak Dose: Atropine: Double Product: 83186 BP Response: Stress Termination: INFUSION COMPLETE Stress Symptoms: NO SYMPTOMS Stress Summary: ECG ANALYSIS Resting ECG: Sinus rhythm. Left bundle branch block. Ventricular premature contraction. Stress ECG: No ECG changes from baseline with Lexiscan infusion. CONCLUSIONS No ECG evidence of ischemia with Lexiscan infusion. Nuclear test results to follow. Dr. William Hough MD (Electronically Signed) Final Date: 12 July 2024 13:01
--- NOTE | 2024-07-12 16:23 | NM ---
EXAMINATION TYPE: NM stress lexiscan cardiolite DATE OF EXAM: 07/12/2024 COMPARISON: NONE CLINICAL INDICATION: Male, 68 years old with history of Low EF; chest pain TECHNIQUE: After the intravenous administration of 10.0 mCi Tc 99m Sestamibi - Cardiolite resting SP ECT images acquired 45 minutes post injection. The patient received 0.4mg Lexiscan, 25.4 mCi Tc 99m Sestamibi - Stress images obtained [address] injection FINDINGS: Review of stress and rest SPECT images demonstrates fixed perfusion defect along the septal and infer ior dukes. The defect becomes slightly accentuated at the mid anteroseptal and mid inferior dukes on stress. Gated analysis shows dyskinesis in the region of defect and lack of augmentation. Estimated left vent ricular ejection fraction of 43 %. TID calculated at 1.0, within normal limits. IMPRESSION: 1. Correlate for ischemic cardiomyopathy given findings which suggest area of previous infarct involv ing the inferior and septal dukes. Estimated LVEF 43%. 2. There may be some inducible arun-infarct ischemia along the mid anteroseptal and mid inferolateral dukes. [facility], , 07/12/2024 4:21 PM
--- NOTE | 2024-07-12 17:44 | P.PN ---
Subjective Progress Note Date: 07/12/24 Patient evaluated today in follow up currently resting in bed. He is having no acute complaints at this time. Plan for possible stress test today. His echocardiogram comes back with an EF of 30-35% severe global hypokinesis of the left ventricle, mild to moderate mitral and mild TR. Mild aortic regurgitation. Based on outside reports his prior EF was 40-45% from reports at [facility]. [id number]. Sodium better at 137. 07/12/2024 Patient is evaluated today resting in bed. He underwent stress test /lexiscan with reports of ischemic cardiomyopathy given findings which suggest area of pervious infarct involving the inferior and septal dukes. Estimated LVEF 43%. There may be some inducible arun-infarct ischemia along the mid anteroseptal and mid inferolateral dukes. Further the reduced EF felt to be from chemotherapy. Pending further recommendations from cardiology. Review of Systems Constitutional: Denied any fatigue denied any fever. Cardio vascular: denied any chest pain, palpitations Gastrointestinal: denied any nausea, vomiting, diarrhea Pulmonary: Denied any shortness of breath cough Neurologic denied any new focal deficits All inpatient medications were reviewed and appropriate changes in these medications as dictated in the interval history and assessment and plan. PHYSICAL EXAMINATION: GENERAL: The patient is alert and oriented x3, not in any acute distress. Well developed, well nourished. HEENT: Pupils are round and equally reacting to light. EOMI. No scleral icterus. No conjunctival pallor. Normocephalic, atraumatic. No pharyngeal erythema. No thyromegaly. CARDIOVASCULAR: S1 and S2 present. No murmurs, rubs, or gallops. PULMONARY: Chest is clear to auscultation, no wheezing or crackles. ABDOMEN: Soft, nontender, nondistended, normoactive bowel sounds. No palpable organomegaly. MUSCULOSKELETAL: No joint swelling or deformity. EXTREMITIES: No cyanosis, clubbing, or pedal edema. NEUROLOGICAL: Gross neurological examination did not reveal any focal deficits. SKIN: No rashes. Assessment and Plan -Acute syncope; medication effect versus cardiac arrhythmia -PVCs; medication effect versus cardiac arrhythmia versus electrolyte abnormality -Hyponatremia; sodium at 129; patient replaced on IV fluids; monitor electrolytes periodically -Carotid arterty disease with right ICA stenosis 50-69% -Leukemia; history of bone marrow transplant and chemotherapy -Hypothyroidism; levothyroxine 50 mcg daily -Hypertension; Coreg 3.125 mg twice daily -History of coronary artery disease; status post PCI; patient remains on aspirin and beta-blockers DVT prophylaxis; SCDs CODE STATUS full code; -Patient remains on telemetry -currently on Coreg 3.125 mg twice daily, entresto twice daily -bilateral carotid Doppler completed -Cardiology on board; appreciate recommendations -30 Day event monitor on discharge The impression and plan of care has been dictated by Darlene Townsend, Nurse Practitioner as directed. Dr. Wally MD I have performed a history and physical examination and medical decision making of this patient, discussed the same with the dictator, and agree with the dictators assessment and plan as written, documented as a scribe. Based on total visit time, I have performed more than 50% of this visit. Objective - Vital Signs Vital signs: Vital Signs Temp 97.8 F 07/12/24 15:00 Pulse 69 07/12/24 15:00 Resp 17 07/12/24 15:00 BP 102/62 07/12/24 15:00 Pulse Ox 100 07/12/24 15:00 FiO2 Intake & Output 07/11/24 07/12/24 07/12/24 18:59 06:59 18:59 Intake Total 236 118 Balance 236 118 Intake: Oral 236 118 Other: Voiding Method Toilet # Voids 1 2 5 - Labs CBC & Chem 7: 07/10/24 04:38 07/12/24 05:53 Labs: Abnormal Lab Results - Last 24 Hours (Table) 07/12/24 Range/Units 05:53 Sodium 132 L (137-145) mmol/L Chloride 96 L (98-107) mmol/L Creatinine 0.62 L (0.66-1.25) mg/dL Assessment and Plan Time with Patient: Less than 30
[2024-07-13 08:02] VITALS: TEMP 97.9
[2024-07-13] MEDS ORDERED: ALPRAZolam 0.25 MG TAB PO PRN (08:30)
[2024-07-13] MEDS ORDERED: ALPRAZolam 0.5 MG TAB PO PRN (08:30)
[2024-07-13] MEDS ORDERED: NITROGLYCERIN SL TABS 0.4 MG TAB SUBLINGUAL PRN (08:30)
[2024-07-13] MEDS: SODIUM CHLORIDE 0.9% 1,000 ML IV SCH (08:57)
[2024-07-13] MEDS: ATORVASTATIN 80 MG TAB PO STA (08:57)
[2024-07-13] MEDS: ASPIRIN 325 MG TAB PO STA (08:58)
[2024-07-13 09:25] LABS: Blood Urea Nitrogen 17.4 mg/dL (9.0-27.0); Chloride 99 mmol/L (96-109); Glucose 98 mg/dL (70-110); Potassium 4.2 mmol/L (3.5-5.5); Sodium 135 mmol/L (135-145)
[2024-07-13 09:26] LABS: Calcium 8.5 mg/dL (8.7-10.3); Carbon Dioxide 25.2 mmol/L (21.6-31.8)
--- NOTE | 2024-07-13 11:36 | P.PN ---
Subjective Progress Note Date: 07/13/24 History of present illness: Patient is a pleasant 68-year-old male with significant past medical history of leukemia status post bone marrow transplant September 2023, [id number], history of kyphoplasty, CAD status post PCI who presented to the emergency room with syncope. He has previously followed with wedding cake designer Dr. Myers, and more recently has seen wedding cake designer at [facility] Dr. Jose Cabrales. He states that yesterday he got up from the recliner and was attempting to walk to the bed when he felt like he was going to pass out and then woke up on the floor. He denies any chest pain or pressure. No shortness of breath, palpitations. He does have episodes of intermittent dizziness and just not feeling right. EKG does show sinus rhythm with PVCs and left bundle branch block. He states he has followed with a wedding cake designer at [facility] and believes he had an echo done in the past few months, reviewed [facility] portal with patient's and no echo report available. Labs reviewed: Sodium 129, potassium 4.4, creatinine 0.54, troponin negative, magnesium 1.9. Orthostatic vital signs were negative yesterday. 07/10/2024 He reports having back pain overnight. He does feel occasional palpitations. No chest pain or pressure. Carotid ultrasound showed right carotid stenosis 50- 69%, left carotid with no significant stenosis. TSH abnormal 33, free T41.0. 07/11 Patient seen and examined. Patient is scheduled for stress test today to evaluate chronotropic response to exercise. Patient denies chest pain or palpitations. Blood pressure 155/73, heart rate 60, pulse ox 96% on room air. 07/12 Patient seen and examined. Reviewed results of echocardiograms from his wedding cake designer, from and the one performed here with the patient. Due to a reduction in his EF, the treadmill stress echo that was scheduled for yesterday was canceled and patient is scheduled today for Lexiscan stress test. Patient did clear this with his oncologist at [facility]. Patient denies chest pain or shortness of breath. He states he slept on and off through the night but in general is feeling fine. Blood pressure 146/79, heart rate 54, pulse ox 96% on room air. Repeat blood work reveals sodium 132, creatinine 0.62. proBNP from yesterday 509. 3/5 Patient seen and examined. Patient denies having shortness of breath no tightness or pressure in his chest. He states he has been ambulating to the bathroom only but no symptoms. No lightheadedness or dizziness. Patient underwent Lexiscan stress test and results reviewed with the patient. Patient denies history of previous AR. Patient is agreeable to move forward with cardiac catheterization with Dr. Matamoros today. Blood pressure 141/72, heart rate 60, pulse ox 97% on room air. Repeat blood work reveals sodium 135, potassium 4.2, creatinine 0.6, BUN 17. Lexiscan Cardiolite stress test reveals correlate for ischemic cardiomyopathy given findings which suggest area of previous infarct involving the inferior and septal dukes. Estimated EF 43%. There may be some inducible arun-infarct ischemia along the mid anterior septal and mid anterior lateral dukes. PHYSICAL EXAMINATION: This is a 68-year-old male in no apparent distress at the time of my examination. HEENT: Head is atraumatic, normocephalic. Pupils are equal, round. Sclerae anicteric. Conjunctivae are clear. Mucous membranes of the mouth are moist. Neck is supple. There is no jugular venous distention. No carotid bruit is heard. CHEST EXAMINATION: Lungs are clear to auscultation. No chest wall tenderness is noted on palpation or with deep breathing. HEART EXAMINATION: Heart regular rate and rhythm. S1, S2 heard. No murmurs, gallops or rub. ABDOMEN: Soft, nontender. Bowel sounds are heard. EXTREMITIES: 2+ peripheral pulses with no evidence of peripheral edema and no calf tenderness noted. NEUROLOGIC EXAMINATION: Patient is awake, alert and oriented x3. IMPRESSION AND PLAN: Leukemia History of bone marrow transplant Syncope Hyponatremia New cardiomyopathy, ischemic versus nonischemic and could be related to chemotherapy Abnormal Lexiscan stress test CAD status post PCI Left bundle branch block PVCs Moderate right carotid stenosis Hypothyroidism PLAN: Continue patient's home cardiac medications: Aspirin 81 mg daily, Coreg 3.125 mg twice daily Patient has been started on Entresto 24-26 mg twice daily Patient has been scheduled for cardiac catheterization today with Dr. Matamoros. Possible outpatient event monitor at discharge. Further recommendations pending clinical course. Nurse practitioner note has been reviewed, I agree with documented findings and plan of care. Patient was seen and examined. Objective - Vital Signs Vital signs: Vital Signs Temp 98.4 F 07/13/24 02:03 Pulse 76 07/13/24 02:03 Resp 16 07/13/24 02:03 BP 112/65 07/13/24 02:03 Pulse Ox 97 07/13/24 02:03 FiO2 Intake & Output 07/12/24 07/13/24 07/13/24 18:59 06:59 18:59 Intake Total 118 Balance 118 Intake: Oral 118 Other: # Voids 5 2 - Labs CBC & Chem 7: 07/10/24 04:38 07/13/24 04:27
[2024-07-13] MEDS: fentaNYL (PF) 50 MCG/1 ML VIAL IVP ONE (11:40)
[2024-07-13] MEDS: VERAPAMIL SYRINGE (5 MG/10 ML) INTRAARTER ONE (11:40)
[2024-07-13] MEDS: LIDOCAINE 1% INJ 10MG/ML (20 ML MDV) SQ ONE (11:40)
[2024-07-13] MEDS: MIDAZOLAM 2 MG/2 ML VIAL IVP ONE (11:40)
[2024-07-13] MEDS: HEPARIN SODIUM,PORCINE 10,000 UNIT in SODIUM CHLORIDE 0.9% 1,000 ML IRRIGATION PRN (11:45)
[2024-07-13] MEDS: SODIUM CHLORIDE 0.9% 1,000 ML IV ONE (11:45)
[2024-07-13] MEDS: HEPARIN SODIUM,PORCINE (1 ML) 2,500 UNIT in SODIUM CHLORIDE 0.9% 250 ML IRRIGATION PRN (11:45)
[2024-07-13] MEDS: HEPARIN SODIUM 1,000 UN/ML (10ML VL) IVP ONE (11:45)
[2024-07-13] MEDS: IOPAMIDOL-370 100ML BTL INJ ONE (11:53)
--- NOTE | 2024-07-13 12:05 | P.CARDCATH ---
Description of Procedure: PROCEDURES PERFORMED: Left heart catheterization, bilateral coronary angiography, ultrasound guided arterial access, left ventriculogram INDICATION: Abnormal stress test, cardiomyopathy CONSENT:I have discussed the risks, benefits and alternative therapies for the above-mentioned procedure and for both sedation/analgesia as well as necessary blood product administration, if indicated, as they pertain to this patient. The patient has indicated understanding and acceptance of the risks and procedures discussed. PROCEDURE: After the risks, benefits and alternatives of the above mentioned procedure explained in detail with the patient, informed consent was obtained. Patient was taken to the catheterization lab and prepped and draped in usual fashion. Ultrasound guidance was used to assess for arterial access. 1% lidocaine was used to anesthetize the right ulnar artery as the ulnar artery appeared larger than the radial. A 6-Dutch sheath was placed in the right ulnar artery using modified Seldinger technique and ultrasound guidance. Left coronary angiography was performed with a 5-Dutch JL 3.5 catheter and right coronary angiography was performed with a 5-Dutch FR 5 catheter in various views. A 5-Dutch FR5 catheter was inserted into the left ventricle and pressure measurements were obtained. A left ventriculogram was performed with power injection with a 5 Dutch angled pigtail catheter in the WILLIAM projection. The right ulnar sheath was removed and a TR band was placed with hemostasis achieved. The patient tolerated the procedure well. Patient was transported back to the post catheterization holding area in stable condition. Conscious Sedation: Patient was monitored under the direct supervision of myself for conscious sedation using Versed and fentanyl for a total duration of 14 minutes HEMODYNAMICS: Aorta: 124/72 LV: 121/2, LVEDP 6 SELECTIVE CORONARY ARTERIOGRAPHY: LEFT MAIN: The left main is a large caliber vessel which bifurcates into the LAD and circumflex. There is no significant stenosis. LEFT ANTERIOR DESCENDING CORONARY ARTERY: LAD is a large caliber vessel which wraps around to the apex. There is mild 10 to 20% proximal LAD stenosis, 20 to 30% mid LAD stenosis, patent LAD stent and otherwise mild luminal irregularities LEFT CIRCUMFLEX CORONARY ARTERY: Left circumflex is a moderate caliber vessel with mild luminal irregularities RIGHT CORONARY ARTERY: The right coronary artery is a large caliber vessel which gives off a PDA and PLV branch and is the dominant vessel. There is a soto's hook proximally. There are mild luminal irregularities with 10 to 20% stenosis. LEFT VENTRICULOGRAM: Left ventricular ejection fraction 35 to 40% with global hypokinesis FINAL IMPRESSION: 1. Mild CAD as described above with patent mid LAD stent 2. Normal left sided filling pressures 3. Left ventricular EF 35-40% PLAN: 1. Aggressive risk factor modification per most recent ACC/AHA guidelines. 2. Follow-up in the office in 1-2 weeks.
[2024-07-13] MEDS ORDERED: RX INFO: IV CONTRAST WAS GIVEN 1 EACH MISC MISCELLANE PRN (13:07)
--- NOTE | 2024-07-13 14:29 | P.DS ---
Providers Date of admission: 07/08/24 17:45 Attending physician: Yamil Donohue Consults: 07/08/24 17:44 Consult Physician Routine Consulting Provider: Eliazar Eldridge Consult Reason/Comments: syncope Do you want consulting provider notified?: Yes 07/10/24 11:31 Consult Physician Routine Consulting Provider: Fredy Urrutia Consult Reason/Comments: Carotid stenosis/ syncope Do you want consulting provider notified?: Yes Primary care physician: Shawn Ron MD Hospital Course: Final Diagnosis -Acute syncope; medication effect versus cardiac arrhythmia -New Cardiomyopathy; ischemic vs. nonischemic could be from chemotherapy -PVCs; medication effect versus cardiac arrhythmia versus electrolyte abnormality -Hyponatremia; hypovolemic improved with fluids. -Carotid arterty disease with right ICA stenosis 50-69%, moderate -Leukemia; history of bone marrow transplant and chemotherapy -Hypothyroidism; levothyroxine 50 mcg daily -Hypertension; Coreg 3.125 mg twice daily -History of coronary artery disease; status post PCI; Discharge Disposition Patient stable for discharge follow-up on the prognosis and will require close follow-up with cardiology. Patient did have a 30-day event monitor placed prior for discharge. Repeat BMP in 2 to 3 days. Due to the decreased ejection fraction patient has been started on Entresto twice daily. He will continue all other same home medications. Patient is cleared for discharge. 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 He has previously followed with cloth covered helmet puller Dr. Myers, and more recently has seen cloth covered helmet puller at [facility] Dr. Jose Cabrales. Patient had a syncopal episode while he was getting up in his recliner and coming to walk to bed. He has denied any chest pain or shortness of breath he has denied any palpitations. But he was having intermittent episodes of dizziness and lightheadedness so he came into the ER for further evaluation. Initial EKG reveals normal sinus rhythm and PVCs with a left bundle branch block. Patient had an echocardiogram done to view event recently that revealed an EF of 40 to 45%. Patient's echocardiogram this admission reveals an EF of 30 to 35% with severe global hypokinesis of the left ventricle, mild to moderate mitral and mild TR, mild aortic regurgitation. The decrease in the ejection fraction could have been related to chemotherapy. Patient was monitored overnight underwent lexiscan stress which suggest area of pervious infarct involving the inferior and septal dukes. Estimated LVEF 43%. There may be some inducible arun-infarct ischemia along the mid anteroseptal and mid inferolateral dukes. For this reason he was taken for a cardiac catheterization. Revealed mild coronary artery problem with mid LAD stent. Normal left-sided filling pressures in her left ventricle EF 35 to 40%. Recommendations for aggressive risk factor modifications and has been cleared for discharge and recommended to follow-up in the cardiology office in 1 to 2 weeks. Most recent labs reveal a sodium level of 135 potassium 4.2, BUN of 17.4 creatinine of 0.6. Troponin level has been negative and a proBNP was 509. Patient is afebrile and on room air. Lungs are clear. Please see medication reconciliation for a list of current medications. Thank you for allowing us to participate in the care of this patient. The impression and plan of care has been dictated by Darlene Townsend, Nurse Practitioner as directed. Dr. Wally MD I have performed a history and physical examination and medical decision making of this patient, discussed the same with the dictator, and agree with the dictators assessment and plan as written, documented as a scribe. Based on total visit time, I have performed more than 50% of this visit. Patient Condition at Discharge: Stable Plan - Discharge Summary Discharge Rx Participant: No New Discharge Prescriptions: New Sacubitril/Valsartan [Entresto 24 mg-26 mg Tablet] 1 each PO BID #60 tab Nitroglycerin Sl Tabs [Nitrostat] 0.4 mg SUBLINGUAL Q5M PRN #25 tab PRN Reason: Chest Pain Continue Levothyroxine Sodium [Synthroid] 50 mcg PO DAILY Acyclovir [Zovirax] 400 mg PO BID Triamcinolone 0.1% Cream [Kenalog 0.1% Cream] 1 applicatio TOPICAL BID Hydrocortisone Cream [Hydrocortisone 1% Cream] 1 applic TOPICAL BID predniSONE 15 mg PO DAILY ursodioL [Ursodiol] 300 mg PO BID Lidocaine 5% Patch [Lidoderm 5% Patch] 1 patch TOPICAL DAILY Omeprazole 20 mg PO AC-BID Letermovir [Prevymis] 480 mg PO DAILY cycloSPORINE 0.05% OPHTH SOLN [Restasis] 1 applicator BOTH EYES Q12H Isavuconazonium Sulfate [Cresemba] 372 mg PO DAILY carvediloL [Coreg] 3.125 mg PO BID Diclofenac Sodium Gel [Voltaren 1% Gel] 1 applic TOPICAL BID PRN PRN Reason: pain Calcium Citrate/Vitamin D3 [Calcium Cit 315-Vit D3 6.25 Mcg (250 Iu)] 1 tab PO DAILY Aspirin EC [Ecotrin Low Dose] 81 mg PO DAILY Discharge Medication List Acyclovir [Zovirax] 400 mg PO BID 08/13/23 [History] Levothyroxine Sodium [Synthroid] 50 mcg PO DAILY 08/13/23 [History] Aspirin EC [Ecotrin Low Dose] 81 mg PO DAILY 07/08/24 [History] Calcium Citrate/Vitamin D3 [Calcium Cit 315-Vit D3 6.25 Mcg (250 Iu)] 1 tab PO DAILY 07/08/24 [History] Diclofenac Sodium Gel [Voltaren 1% Gel] 1 applic TOPICAL BID PRN 07/08/24 [History] Hydrocortisone Cream [Hydrocortisone 1% Cream] 1 applic TOPICAL BID 07/08/24 [History] Isavuconazonium Sulfate [Cresemba] 372 mg PO DAILY 07/08/24 [History] Letermovir [Prevymis] 480 mg PO DAILY 07/08/24 [History] Lidocaine 5% Patch [Lidoderm 5% Patch] 1 patch TOPICAL DAILY 07/08/24 [History] Omeprazole 20 mg PO AC-BID 07/08/24 [History] Triamcinolone 0.1% Cream [Kenalog 0.1% Cream] 1 applicatio TOPICAL BID 07/08/24 [History] carvediloL [Coreg] 3.125 mg PO BID 07/08/24 [History] cycloSPORINE 0.05% MELINDA RED [Restasis] 1 applicator BOTH EYES Q12H 07/08/24 [History] predniSONE 15 mg PO DAILY 07/08/24 [History] ursodioL [Ursodiol] 300 mg PO BID 07/08/24 [History] Nitroglycerin Sl Tabs [Nitrostat] 0.4 mg SUBLINGUAL Q5M PRN #25 tab 07/13/24 [Rx] Sacubitril/Valsartan [Entresto 24 mg-26 mg Tablet] 1 each PO BID #60 tab 07/13/24 [Rx] Follow up Appointment(s)/Referral(s): Shawn Ron MD [Primary Care Provider] - 1-2 days Marvin Myers MD [REFERRING] - 1 Week Tushar Matamoros DO [STAFF PHYSICIAN] - 1 Week Ambulatory/Diagnostic Orders: Basic Metabolic Panel [LAB.AMB] Time Frame: 3 Days, Location: None Selected Discharge/Stand Alone Forms: Who Do I Call?, Community Resources, Help In The Home Discharge Disposition: HOME SELF-CARE
[2024-07-13 15:41] VITALS: RESP 16
[2024-07-13 16:18] VITALS: BP 130/68; PULSE 63
== END 2024-07-13 17:32 | disposition home or self-care (01) | DRG 641 ==
LOC: EC 15:14 → SUPCPDRO 15:14 → 6NMEDSUR 17:44 → OBSVTOIN 17:45 → 6NMEDSUR 19:37
PROVIDERS: ADMIT Hospitalist; ATTEND Hospitalist
PROC: 4A02XM4 Measurement of Cardiac Total Activity, External Approach (ICD-10-PCS; 2024-07-12)
PROC: B2151ZZ Fluoroscopy of Left Heart using Low Osmolar Contrast (ICD-10-PCS; 2024-07-13)
PROC: B2111ZZ Fluoroscopy of Multiple Coronary Arteries using Low Osmolar Contrast (ICD-10-PCS; 2024-07-13)
PROC: 4A023N7 Measurement of Cardiac Sampling and Pressure, Left Heart, Percutaneous Approach (ICD-10-PCS; principal; 2024-07-13 11:30)
DX: E87.1 Hypo-osmolality and hyponatremia (principal); C95.90 Leukemia, unspecified not having achieved remission; Z94.81 Bone marrow transplant status; E03.9 Hypothyroidism, unspecified; I10 Essential (primary) hypertension; I65.21 Occlusion and stenosis of right carotid artery; I08.3 Combined rheumatic disorders of mitral, aortic and tricuspid valves; G89.29 Other chronic pain; I49.3 Ventricular premature depolarization; Z79.890 Hormone replacement therapy; W19.XXXA Unspecified fall, initial encounter; E86.1 Hypovolemia; I25.10 Atherosclerotic heart disease of native coronary artery without angina pectoris; I25.5 Ischemic cardiomyopathy; I44.7 Left bundle-branch block, unspecified; Y92.009 Unspecified place in unspecified non-institutional (private) residence as the place of occurrence of the external cause; Z79.82 Long term (current) use of aspirin; Z79.899 Other long term (current) drug therapy; Z85.46 Personal history of malignant neoplasm of prostate; Z98.61 Coronary angioplasty status; Z91.048 Other nonmedicinal substance allergy status; Z87.19 Personal history of other diseases of the digestive system
CPT/HCPCS: 36415; 70450; 71046; 72125; 72131; 78452; 80048; 80053; 83605; 83735; 83880; 84439; 84443; 84484; 85025; 93005; 93017; 93270; 93306; 93458; 93880; 96360; 96361; 99285

== ENCOUNTER → 2024-07-18 | Outpatient (CLI) | payer MEDICARE ==
[2024-07-18 15:29] LABS: BUN/Creat Ratio 28.71 Ratio (12.00-20.00); Blood Urea Nitrogen 20.1 mg/dL (9.0-27.0); Calcium 9.4 mg/dL (8.7-10.3); Carbon Dioxide 27.1 mmol/L (21.6-31.8); Chloride 92 mmol/L (96-109); Glucose 93 mg/dL (70-110); Potassium 5.2 mmol/L (3.5-5.5); Sodium 129 mmol/L (135-145)
== END | disposition home or self-care (01) ==
LOC: LABWHC1 12:16
PROVIDERS: ATTEND Nurse Practitioner Family
DX: I10 Essential (primary) hypertension (principal); E86.1 Hypovolemia; E87.1 Hypo-osmolality and hyponatremia
CPT/HCPCS: 36415; 80048